=== PATIENT | male | born 1960 | race Caucasian/White ===

== ENCOUNTER 2017-09-19 10:24 | Emergency (ER) | payer SELFPAY | END 2017-09-19 13:02 | disposition left against medical advice (07) | LOC: NED 10:24 | DX: R06.02 Shortness of breath (principal); R42 Dizziness and giddiness; Z53.21 Procedure and treatment not carried out due to patient leaving prior to being seen by health care provider | CPT/HCPCS: 99281 ==

== ENCOUNTER 2017-09-27 12:41 | Inpatient (IN) | payer OTHER ==
[~2017-09-27] VITALS: Ht 180.3 cm; Wt 86.9 kg
[2017-09-27] MEDS ORDERED: LORazepam 2 MG/ML VIAL ONE (13:08)
[2017-09-27] MEDS ORDERED: HALOPERIDOL LACTATE 5 MG/ML AMP ONE (13:08)
[2017-09-27] MEDS ORDERED: SODIUM CHLOR 0.9% 1000 ML INJ 1,000 ML IV ONE ×3 (13:15→15:42)
[2017-09-27] MEDS ORDERED: LORazepam 2 MG/ML VIAL IV PUSH ONE (13:15)
--- NOTE | 2017-09-27 13:25 | PD ---
HPI Chief Complaint: Altered Mental Status Time Seen by Provider: 13:09 Travel History International Travel<30 days: No Contact w/Intl Traveler<30days: No Traveled to known affect area: No History of Present Illness HPI Patient is a 57-year-old male presenting from the retirement for evaluation of altered mental status and cellulitis. H&P is limited, patient is not cooperative, he is flailing and jerking in the bed, yelling racist remarks. Paperwork from the retirement stated that patient received antibiotics and he has no known drug allergies. Per report patient has a history of drug abuse, heroin. Cellulitic area to right arm is marked. [facility] Past Medical History Medical History: Unable to Obtain Social History Alcohol Use: Yes Tobacco Use: Yes Substance Use: Yes Allergies-Medications (Allergen,Severity, Reaction): Coded Allergies: No Known Allergies (Unverified , 09/27/17) Review of Systems ROS Limitations: Uncooperative, Combative Except as stated in HPI: all other systems reviewed are Neg Skin: Positive Lumps, Positive Change in Pigmentation, Positive Lesions Psychiatric: Positive: Mood Disorder, Substance Abuse Physical Exam Narrative GENERAL: Well-developed, well-nourished, alert combative male. SKIN: 3 cm fluctuant mass to mid thoracic back on the right side. Multiple abrasions on wrists, legs, feet. Rash to abdomen. Discoloration to bilateral upper extremities. HEAD: Atraumatic. Normocephalic. EYES: Pupils equal and round. No scleral icterus. No injection or drainage. ENT: No nasal bleeding or discharge. Mucous membranes pink and moist. NECK: Trachea midline. No JVD. CARDIOVASCULAR: Regular rate and rhythm. RESPIRATORY: No accessory muscle use. Clear to auscultation. Breath sounds equal bilaterally. GASTROINTESTINAL: Abdomen soft, non-tender, nondistended. Hepatic and splenic margins not palpable. MUSCULOSKELETAL: Bilateral upper extremities have a purple appearance to just past the elbows bilaterally, bilateral hands are edematous. 2+ radial pulses bilaterally NEUROLOGICAL: Awake and alert. No obvious cranial nerve deficits. Motor grossly within normal limits. Five out of 5 muscle strength in the arms and legs. Normal speech. PSYCHIATRIC: Aggressive and combative mood and affect Data Data Last Documented VS Vital Signs Date Time Temp Pulse Resp B/P (MAP) Pulse Ox O2 Delivery O2 Flow Rate FiO2 09/27/17 16:24 100.3 112 18 134/80 (98) 100 Nasal Cannula 2.00 Orders Orders Sepsis Workup Initiated (09/27/17 ) Complete Blood Count With Diff (09/27/17 12:49) Comprehensive Metabolic Panel (09/27/17 12:49) Lactic Acid Sepsis Protocol (09/27/17 12:49) Blood Culture (09/27/17 12:49) Iv Access Insert/Monitor (09/27/17 12:49) Lorazepam Inj (Ativan Inj) (09/27/17 13:08) Haloperidol Inj (Haldol Inj) (09/27/17 13:08) Sodium Chlor 0.9% 1000 Ml Inj (Ns 1000 M (09/27/17 13:15) Lorazepam Inj (Ativan Inj) (09/27/17 13:15) Creatine Kinase (Cpk) (09/27/17 13:25) Drug Screen, Random Urine (09/27/17 13:25) Cath For Specimen (09/27/17 13:25) Urinalysis - C+S If Indicated (09/27/17 13:50) Sepsis Workup Initiated (09/27/17 ) Blood Culture (09/27/17 15:42) Chest, Single Ap (09/27/17 15:42) Piperacil-Tazo 4.5 Gm Premix (Zosyn 4.5 (09/27/17 15:42) Vancomycin Inj (Vancomycin Inj) (09/27/17 15:42) Sodium Chlor 0.9% 1000 Ml Inj (Ns 1000 M (09/27/17 15:42) Sodium Chlor 0.9% 1000 Ml Inj (Ns 1000 M (09/27/17 15:42) Acetaminophen 1000 Mg/100 Ml (Ofirmev 10 (09/27/17 15:45) Us Arm Venous Doppler Bilat (09/27/17 ) Lactic Acid (09/27/17 16:42) CKMB (09/27/17 14:19) CKMB% (09/27/17 14:19) Restraints Violent (09/27/17 16:59) Electrocardiogram (09/27/17 ) Sodium Chlor 0.9% 1000 Ml Inj (Ns 1000 M (09/27/17 18:45) Admit Order (Ed Use Only) (09/27/17 18:38) Labs Laboratory Tests Test 09/27/17 14:19 09/27/17 17:41 White Blood Count 19.8 TH/MM3 Red Blood Count 4.31 MIL/MM3 Hemoglobin 12.2 GM/DL Hematocrit 35.4 % Mean Corpuscular Volume 82.2 FL Mean Corpuscular Hemoglobin 28.2 PG Mean Corpuscular Hemoglobin Concent 34.4 % Red Cell Distribution Width 14.0 % Platelet Count 330 TH/MM3 Mean Platelet Volume 8.5 FL Neutrophils (%) (Auto) 92.8 % Lymphocytes (%) (Auto) 2.2 % Monocytes (%) (Auto) 4.9 % Eosinophils (%) (Auto) 0.0 % Basophils (%) (Auto) 0.1 % Neutrophils # (Auto) 18.4 TH/MM3 Lymphocytes # (Auto) 0.4 TH/MM3 Monocytes # (Auto) 1.0 TH/MM3 Eosinophils # (Auto) 0.0 TH/MM3 Basophils # (Auto) 0.0 TH/MM3 CBC Comment DIFF FINAL Differential Comment Urine Color YELLOW Urine Turbidity HAZY Urine pH 5.5 Urine Specific [place] 1.022 Urine Protein 100 mg/dL Urine Glucose (UA) NEG mg/dL Urine Ketones 10 mg/dL Urine Occult Blood LARGE Urine Nitrite NEG Urine Bilirubin NEG Urine Urobilinogen LESS THAN 2.0 MG/DL Urine Leukocyte Esterase NEG Urine RBC 1 /hpf Urine WBC 4 /hpf Urine Squamous Epithelial Cells <1 /hpf Urine Amorphous Sediment RARE Urine Mucus FEW /lpf Microscopic Urinalysis Comment CULT NOT INDICATED Blood Urea Nitrogen 56 MG/DL Creatinine 3.02 MG/DL Random Glucose 89 MG/DL Total Protein 7.9 GM/DL Albumin 3.6 GM/DL Calcium Level 8.6 MG/DL Alkaline Phosphatase 43 U/L Aspartate Amino Transf (AST/SGOT) 420 U/L Alanine Aminotransferase (ALT/SGPT) 124 U/L Total Bilirubin 0.9 MG/DL Sodium Level 140 MEQ/L Potassium Level 3.9 MEQ/L Chloride Level 105 MEQ/L Carbon Dioxide Level 20.0 MEQ/L Anion Gap 15 MEQ/L Estimat Glomerular Filtration Rate 21 ML/MIN Lactic Acid Level 3.0 mmol/L 1.2 mmol/L Total Creatine Kinase 85916 U/L Creatine Kinase MB 92.0 NG/ML Creatine Kinase MB % 0.2 % Urine Opiates Screen NEG Urine Barbiturates Screen NEG Urine Amphetamines Screen NEG Urine Benzodiazepines Screen NEG Urine Cocaine Screen NEG Urine Cannabinoids Screen POS MDM Medical Decision Making Medical Screen Exam Complete: Yes Emergency Medical Condition: Yes Interpretation(s) Vital Signs Date Time Temp Pulse Resp B/P (MAP) Pulse Ox O2 Delivery O2 Flow Rate FiO2 09/27/17 16:24 100.3 112 18 134/80 (98) 100 Nasal Cannula 2.00 09/27/17 15:21 100.3 108 18 143/88 (106) 100 Nasal Cannula 2.00 09/27/17 13:54 100.5 107 18 132/71 (91) 99 Room Air Laboratory Tests Test 09/27/17 14:19 White Blood Count 19.8 TH/MM3 Red Blood Count 4.31 MIL/MM3 Hemoglobin 12.2 GM/DL Hematocrit 35.4 % Mean Corpuscular Volume 82.2 FL Mean Corpuscular Hemoglobin 28.2 PG Mean Corpuscular Hemoglobin Concent 34.4 % Red Cell Distribution Width 14.0 % Platelet Count 330 TH/MM3 Mean Platelet Volume 8.5 FL Neutrophils (%) (Auto) 92.8 % Lymphocytes (%) (Auto) 2.2 % Monocytes (%) (Auto) 4.9 % Eosinophils (%) (Auto) 0.0 % Basophils (%) (Auto) 0.1 % Neutrophils # (Auto) 18.4 TH/MM3 Lymphocytes # (Auto) 0.4 TH/MM3 Monocytes # (Auto) 1.0 TH/MM3 Eosinophils # (Auto) 0.0 TH/MM3 Basophils # (Auto) 0.0 TH/MM3 CBC Comment DIFF FINAL Differential Comment Urine Color YELLOW Urine Turbidity HAZY Urine pH 5.5 Urine Specific [place] 1.022 Urine Protein 100 mg/dL Urine Glucose (UA) NEG mg/dL Urine Ketones 10 mg/dL Urine Occult Blood LARGE Urine Nitrite NEG Urine Bilirubin NEG Urine Urobilinogen LESS THAN 2.0 MG/DL Urine Leukocyte Esterase NEG Urine RBC 1 /hpf Urine WBC 4 /hpf Urine Squamous Epithelial Cells <1 /hpf Urine Amorphous Sediment RARE Urine Mucus FEW /lpf Microscopic Urinalysis Comment CULT NOT INDICATED Blood Urea Nitrogen 56 MG/DL Creatinine 3.02 MG/DL Random Glucose 89 MG/DL Total Protein 7.9 GM/DL Albumin 3.6 GM/DL Calcium Level 8.6 MG/DL Alkaline Phosphatase 43 U/L Aspartate Amino Transf (AST/SGOT) 420 U/L Alanine Aminotransferase (ALT/SGPT) 124 U/L Total Bilirubin 0.9 MG/DL Sodium Level 140 MEQ/L Potassium Level 3.9 MEQ/L Chloride Level 105 MEQ/L Carbon Dioxide Level 20.0 MEQ/L Anion Gap 15 MEQ/L Estimat Glomerular Filtration Rate 21 ML/MIN Lactic Acid Level 3.0 mmol/L Urine Opiates Screen NEG Urine Barbiturates Screen NEG Urine Amphetamines Screen NEG Urine Benzodiazepines Screen NEG Urine Cocaine Screen NEG Urine Cannabinoids Screen POS Last Impressions Chest X-Ray 09/27/17 1542 Signed Impressions: Service Date/Time: Wednesday, September 27, 2017 15:52 - CONCLUSION: No acute disease. Justo Kelly MD Upper Extremity Ultrasound 09/27/17 0000 Signed Impressions: Service Date/Time: Wednesday, September 27, 2017 17:08 - CONCLUSION: Normal examination. Justo Kelly MD Differential Diagnosis Cellulitis versus abscess versus metabolic abnormality versus sepsis versus substance abuse versus other Narrative Course Patient was brought from the retirement for evaluation of altered mental status and cellulitis. Patient was combative and aggressive on arrival, spitting and yelling racial slurs. He was jerking in the bed causing potential injury to himself and staff. Patient was placed in four-point restraints, he continued the aggressive behavior. He was given Ativan and Haldol. Labs ordered and pending. When patient finally calm down, labs were obtained. CBC with a white count of 19.8 with left shift Chemistry with a BUN and creatinine of 56/3.02, AST and ALT 420 and 124. Lactic acid 3.0 Urine drug screen is positive for marijuana Urinalysis is not consistent with a urinary tract infection. IV acetaminophen was given for fever of 100.3 Patient has received a total of 3 L of IV fluids. Ultrasound of bilateral upper extremities ordered to rule out DVT, per technician helper instrument bilateral upper extremities are negative for blood clot. CPK [id number] Patient has been resting comfortably, he has been taken out of the restraints. Law enforcement is at bedside. Discussed with Dr. Viveros who accepted admission. IV fluids ordered per his request, normal saline at 150 an hour. Admit orders placed. Procedures Procedure Narrative After the risks and benefits were discussed the following procedure was performed: INCISION AND DRAINAGE OF ABSCESS: The area was prepped and was sterilely draped. A subcutaneous wheal of 1 % Xylocaine with a total number 2 mL was used to anesthetize the area. The area was properly anesthetized. A number 11 scalpel was used to make a 2 -cm incision across the area of the abscess. The abscess was drained an irrigated with normal saline. Quarter inch iodoform packing was placed in the wound. Sterile dressing applied. Patient advised to have packing removed in two days. Sepsis Criteria SIRS Criteria (2 or more): Heart rate over 90, RR > 20 or PaCO2 < 32, WBC > 12205, < 4000 or > 10% bands Sepsis Criteria (SIRS+source): Infect source susp/known (cellulitis/IVDU) Severe Sepsis (+one): Organ Dysfunction (transaminitis), Lactate >2, Acute Oliguria/Renal Failure Diagnosis Primary Impression: Severe sepsis Additional Impressions: Cellulitis Qualified Codes: L03.119 - Cellulitis of unspecified part of limb IV drug abuse Rhabdomyolysis Qualified Codes: M62.82 - Rhabdomyolysis Admitting Information Admitting Physician Requests: Admit Condition: Stable Amarilys Talbert Sep 27, 2017 13:25
[2017-09-27 13:54] VITALS: BP 132/71; PULSE 107; RESP 18; TEMP 100.5; O2SAT 99
[2017-09-27 14:39] LABS: AUTOMATED NEUTROPHIL # 18.4 TH/MM3 (1.8-7.7); BASOPHIL % 0.1 % (0.0-2.0); HEMATOCRIT 35.4 % (39.0-51.0); HEMOGLOBIN 12.2 GM/DL (13.0-17.0); LYMPH % 2.2 % (9.0-44.0); LYMPHOCYTE # 0.4 TH/MM3 (1.0-4.8); MEAN CELL VOLUME 82.2 FL (80.0-100.0); MEAN CORPUSCULAR HEMOGLOBIN 28.2 PG (27.0-34.0); MEAN CORPUSCULAR HGB CONC 34.4 % (32.0-36.0); MEAN PLATELET VOLUME 8.5 FL (7.0-11.0); MONO % 4.9 % (0.0-8.0); NEUT % 92.8 % (16.0-70.0); PLATELET COUNT 330 TH/MM3 (150-450); RED BLOOD COUNT 4.31 MIL/MM3 (4.50-5.90); WHITE BLOOD COUNT 19.8 TH/MM3 (4.0-11.0)
[2017-09-27 14:45] LABS: AMORPHOUS SEDIMENT, URINE RARE; BILIRUBIN, URINE NEG (NEG); BLOOD, URINE LARGE (NEG); GLUCOSE,URINE NEG (NEG); KETONE, URINE 10 mg/dL (NEG); MUCUS URINE FEW /lpf (OCC); NITRITE,URINE NEG (NEG); PH, URINE 5.5 (5.0-8.5); SQUAMOUS EPITHELIAL CELL URINE <1 /hpf (0-5); URINE COLOR YELLOW (YELLW/STRAW); URINE LEUKOCYTE ESTERASE NEG (NEG)
[2017-09-27 15:10] LABS: ALKALINE PHOSPHATASE 43 U/L (45-117); TOTAL BILIRUBIN ADULT 0.9 MG/DL (0.2-1.0); TOTAL PROTEIN 7.9 GM/DL (6.4-8.2)
[2017-09-27 15:15] LABS: ALBUMIN 3.6 GM/DL (3.4-5.0); ALT (GPT) 124 U/L (12-78); AST (GOT) 420 U/L (15-37); BLOOD UREA NITROGEN 56 MG/DL (7-18); CALCIUM 8.6 MG/DL (8.5-10.1); CHLORIDE 105 MEQ/L (98-107); CREATININE 3.02 MG/DL (0.60-1.30); GLOMERULAR FILTRATION RATE 21 ML/MIN (>89); GLUCOSE,RANDOM 89 MG/DL (74-106); SODIUM (NA) 140 MEQ/L (136-145)
[2017-09-27 15:21] VITALS: BP 143/88; PULSE 108; RESP 18; TEMP 100.3; O2SAT 100
[2017-09-27] MEDS ORDERED: VANCOMYCIN INJ 1,000 MG in SODIUM CHLOR 0.9% 250 ML INJ 250 ML IV STA (15:42)
[2017-09-27] MEDS ORDERED: PIPERACIL-TAZO 4.5 GM PREMIX 100 ML IV STA (15:42)
[2017-09-27] MEDS ORDERED: ACETAMINOPHEN 1000 MG/100 ML 65 ML IV ONE (15:45)
--- NOTE | 2017-09-27 15:56 | PD ---
Physical Exam Date Seen by Provider: Sep 27, 2017 Narrative This patient was sent to us from the custodial for evaluation of upper extremity cellulitis. He has been incarcerated there for a couple of days. He admits to heroin abuse. He is being extremely uncooperative. Data Data Last Documented VS Vital Signs Date Time Temp Pulse Resp B/P (MAP) Pulse Ox O2 Delivery O2 Flow Rate FiO2 09/27/17 15:21 100.3 108 18 143/88 (106) 100 Nasal Cannula 2.00 Orders Orders Sepsis Workup Initiated (09/27/17 ) Complete Blood Count With Diff (09/27/17 12:49) Comprehensive Metabolic Panel (09/27/17 12:49) Lactic Acid Sepsis Protocol (09/27/17 12:49) Blood Culture (09/27/17 12:49) Iv Access Insert/Monitor (09/27/17 12:49) Lorazepam Inj (Ativan Inj) (09/27/17 13:08) Haloperidol Inj (Haldol Inj) (09/27/17 13:08) Sodium Chlor 0.9% 1000 Ml Inj (Ns 1000 M (09/27/17 13:15) Lorazepam Inj (Ativan Inj) (09/27/17 13:15) Creatine Kinase (Cpk) (09/27/17 13:25) Drug Screen, Random Urine (09/27/17 13:25) Cath For Specimen (09/27/17 13:25) Urinalysis - C+S If Indicated (09/27/17 13:50) Wound Culture And Gram Stain (09/27/17 14:20) Sepsis Workup Initiated (09/27/17 ) Blood Culture (09/27/17 15:42) Chest, Single Ap (09/27/17 15:42) Piperacil-Tazo 4.5 Gm Premix (Zosyn 4.5 (09/27/17 15:42) Vancomycin Inj (Vancomycin Inj) (09/27/17 15:42) Sodium Chlor 0.9% 1000 Ml Inj (Ns 1000 M (09/27/17 15:42) Sodium Chlor 0.9% 1000 Ml Inj (Ns 1000 M (09/27/17 15:42) Acetaminophen 1000 Mg/100 Ml (Ofirmev 10 (09/27/17 15:45) Us Arm Venous Doppler Bilat (09/27/17 ) Labs Laboratory Tests Test 09/27/17 14:19 White Blood Count 19.8 TH/MM3 Red Blood Count 4.31 MIL/MM3 Hemoglobin 12.2 GM/DL Hematocrit 35.4 % Mean Corpuscular Volume 82.2 FL Mean Corpuscular Hemoglobin 28.2 PG Mean Corpuscular Hemoglobin Concent 34.4 % Red Cell Distribution Width 14.0 % Platelet Count 330 TH/MM3 Mean Platelet Volume 8.5 FL Neutrophils (%) (Auto) 92.8 % Lymphocytes (%) (Auto) 2.2 % Monocytes (%) (Auto) 4.9 % Eosinophils (%) (Auto) 0.0 % Basophils (%) (Auto) 0.1 % Neutrophils # (Auto) 18.4 TH/MM3 Lymphocytes # (Auto) 0.4 TH/MM3 Monocytes # (Auto) 1.0 TH/MM3 Eosinophils # (Auto) 0.0 TH/MM3 Basophils # (Auto) 0.0 TH/MM3 CBC Comment DIFF FINAL Differential Comment Urine Color YELLOW Urine Turbidity HAZY Urine pH 5.5 Urine Specific [place] 1.022 Urine Protein 100 mg/dL Urine Glucose (UA) NEG mg/dL Urine Ketones 10 mg/dL Urine Occult Blood LARGE Urine Nitrite NEG Urine Bilirubin NEG Urine Urobilinogen LESS THAN 2.0 MG/DL Urine Leukocyte Esterase NEG Urine RBC 1 /hpf Urine WBC 4 /hpf Urine Squamous Epithelial Cells <1 /hpf Urine Amorphous Sediment RARE Urine Mucus FEW /lpf Microscopic Urinalysis Comment CULT NOT INDICATED Blood Urea Nitrogen 56 MG/DL Creatinine 3.02 MG/DL Random Glucose 89 MG/DL Total Protein 7.9 GM/DL Albumin 3.6 GM/DL Calcium Level 8.6 MG/DL Alkaline Phosphatase 43 U/L Aspartate Amino Transf (AST/SGOT) 420 U/L Alanine Aminotransferase (ALT/SGPT) 124 U/L Total Bilirubin 0.9 MG/DL Sodium Level 140 MEQ/L Potassium Level 3.9 MEQ/L Chloride Level 105 MEQ/L Carbon Dioxide Level 20.0 MEQ/L Anion Gap 15 MEQ/L Estimat Glomerular Filtration Rate 21 ML/MIN Lactic Acid Level 3.0 mmol/L MDM Supervised Visit with [facility]: Yes Narrative Course I, Dr. Valdivia, have reviewed the advance practice practitioner's documentation and am in agreement, met with the patient face to face, made the diagnosis, and the medical decision making was done by me. *My assessment and Findings: Vital Signs Date Time Temp Pulse Resp B/P (MAP) Pulse Ox O2 Delivery O2 Flow Rate FiO2 09/27/17 15:21 100.3 108 18 143/88 (106) 100 Nasal Cannula 2.00 09/27/17 13:54 100.5 107 18 132/71 (91) 99 Room Air CBC & BMP Diagram 09/27/17 14:19 Total Protein 7.9, Albumin 3.6, Calcium Level 8.6, Alkaline Phosphatase 43 L, Aspartate Amino Transf (AST/SGOT) 420 H, Alanine Aminotransferase (ALT/SGPT) 124 H, Total Bilirubin 0.9 Lactic acid level is 3.0. The patient is being treated empirically with Zosyn and vancomycin. He will be admitted to the hospital for severe sepsis, cellulitis, IV drug abuse Please see Amarilys Cleary NP's note for results of laboratory and radiographic evaluation, ED course, final diagnosis and disposition Sepsis Criteria SIRS Criteria (2 or more): Heart rate over 90, WBC > 13896, < 4000 or > 10% bands Sepsis Criteria (SIRS+source): Infect source susp/known Severe Sepsis (+one): Lactate >2 Criteria Outcome: Meets SIRS criteria, Meets sepsis criteria, Meets severe sepsis criteria Diagnosis Primary Impression: Severe sepsis Additional Impressions: Cellulitis Qualified Codes: L03.119 - Cellulitis of unspecified part of limb IV drug abuse Dariana Valdivia MD Sep 27, 2017 15:56
[2017-09-27 16:24] VITALS: BP 134/80; PULSE 112; RESP 18; TEMP 100.3; O2SAT 100
--- NOTE | 2017-09-27 16:38 | RADRPT ---
EXAM DATE/TIME: 09/27/2017 15:52 [facility] COMPARISON: No previous studies available for comparison. INDICATIONS : Fever. MEDICAL HISTORY : Unobtainable. SURGICAL HISTORY : Unobtainable. ENCOUNTER: Initial ACUITY: 1 day PAIN SCORE: Non-responsive. LOCATION: Bilateral chest FINDINGS: A single view of the chest demonstrates the lungs to be symmetrically aerated without evidence of mas s, infiltrate or effusion. The cardiomediastinal contours are unremarkable. Osseous structures are intact. CONCLUSION: No acute disease. Justo Kelly MD on September 27, 2017 at 16:35 Board Certified Radiologist. This report was verified electronically.
--- NOTE | 2017-09-27 17:53 | RADRPT ---
EXAM DATE/TIME: 09/27/2017 17:08 [facility] COMPARISON: No previous studies available for comparison. INDICATIONS : Bilateral arm swelling. MEDICAL HISTORY : Unable to obtain. SURGICAL HISTORY : Unable to obtain. ENCOUNTER: Initial ACUITY: 1 day PAIN SCORE: Non-responsive LOCATION: Bilateral arms. FINDINGS: RIGHT UPPER EXTREMITY: There is spontaneous flow documented in the brachial, basilic, cephalic, axillary, and subclavian vei ns. The vessels are compressible and augmentation response is documented. No filling defects are se en. The flow is phasic with respiration. Direction of flow in the jugular vein is caudal. LEFT UPPER EXTREMITY: There is spontaneous flow documented in the brachial, basilic, cephalic, axillary, and subclavian vei ns. The vessels are compressible and augmentation response is documented. No filling defects are se en. The flow is phasic with respiration. Direction of flow in the jugular vein is caudal. CONCLUSION: Normal examination. Justo Kelly MD on September 27, 2017 at 17:51 Board Certified Radiologist. This report was verified electronically.
[2017-09-27] MEDS ORDERED: SODIUM CHLOR 0.9% 1000 ML INJ 1,000 ML IV SCH (18:45)
[2017-09-27] MEDS ORDERED: SENNOSIDES 8.6 MG TAB PO PRN (18:45)
[2017-09-27] MEDS ORDERED: MAGNESIUM HYDROXIDE SUSP 30 ML CUP PO PRN (18:45)
[2017-09-27] MEDS ORDERED: SODIUM CHLORIDE 0.9% FLUSH 10 ML FLUSH IV FLUSH PRN (18:45)
[2017-09-27] MEDS ORDERED: Vancomycin Consult Pharmacy 1 EA OTHER SCH (18:45)
[2017-09-27] MEDS ORDERED: BISACODYL 10 MG SUPP RECTAL PRN (18:45)
[2017-09-27] MEDS ORDERED: ONDANSETRON HCL 4 MG/2 ML VIAL IVP PRN (18:45)
[2017-09-27] MEDS ORDERED: LACTULOSE SYRUP 20 GM/30 ML CUP PO PRN (18:45)
[2017-09-27 19:00] VITALS: BP 149/91; PULSE 102; RESP 19; O2SAT 100
--- NOTE | 2017-09-27 19:03 | HHI.HP ---
[facility] Service [facility] Primary Care Physician No Primary Care Physician Admission Diagnosis Rhabdomyolysis, sepsis, acute renal failure, cellulitis Diagnoses: (1) Sepsis Diagnosis: Principal (2) OLGA (acute kidney injury) Diagnosis: Principal (3) Rhabdomyolysis Diagnosis: Principal (4) Cellulitis Diagnosis: Principal (5) Encephalopathy Diagnosis: Principal Travel History International Travel<30 Days: No Contact w/Intl Traveler <30 Da: No Traveled to Known Affected Are: No History of Present Illness This is a 57-year-old male with unknown PMH who was brought to the ER from Detention secondary to AMS and bilateral upper extremity cellulitis. On arrival, patient found to be significantly combative, uncooperative with exam, requiring sedation. Currently calm, but remains uncooperative w/ questions/exam. Officers at bedside providing some history, pt was apparently in Mental Health Unit, held in solitary, noted to have bilateral upper extremity cellulitis and AMS. Per report, given Rocephin IV prior to transport to ER. On arrival, BP 132/71, HR 107, O2 sat 100% on RA, Temp 100.5. WBC 19.8. Creatinine 3.02, no previous labs for comparison. Lactic Acid 3.0. AST 420, ALT 124, ALP 43. CPK 58,778. UA negative for UTI. Urine Drug Screen positive for Marijuana. CXR no acute findings. Doppler UE normal. +bilateral upper extremity cellulitis w / swelling on exam, S/p Vanc/Zosyn in ER. Review of Systems Except as stated in HPI: all other systems reviewed are Neg ROS: Unable to obtain as patient uncooperative with exam. Past Family Social History Past Medical History PMH: Unknown Past Surgical History PAST SURGICAL HISTORY: Unknown Allergies: Coded Allergies: No Known Allergies (Unverified , 09/27/17) Family History PAST FAMILY HISTORY: Reviewed. No h/o DM or CAD Social History PAST SOCIAL HISTORY: Reportedly positive for alcohol, tobacco and drugs, however unable to verify Physical Exam Vital Signs Vital Signs Date Time Temp Pulse Resp B/P (MAP) Pulse Ox O2 Delivery O2 Flow Rate FiO2 3/31/18 16:24 100.3 112 18 134/80 (98) 100 Nasal Cannula 2.00 09/27/17 15:21 100.3 108 18 143/88 (106) 100 Nasal Cannula 2.00 09/27/17 13:54 100.5 107 18 132/71 (91) 99 Room Air Physical Exam PE: GENERAL: Middle-aged white male in no acute distress, sleeping, uncooperative w / questions/exam. Officers at bedside HEENT: PERRLA, EOMI. No scleral icterus or conjunctival pallor. No lid lag or facial droop. CARDIOVASCULAR: Regular rate and rhythm. No obvious murmurs to auscultation. No chest tenderness to palpation. RESPIRATORY: No obvious rhonchi or wheezing. Clear to auscultation. Breath sounds equal bilaterally. GASTROINTESTINAL: Abdomen soft, non-tender, nondistended. BS normal. MUSCULOSKELETAL: Extremities without clubbing, cyanosis, or edema. Bilateral upper extremity erythema/edema, few healing lacerations, no open wound noted. NEUROLOGICAL: Asleep, not cooperative w/ exam. No focal neurologic deficits. Moving both upper and lower extremities spontaneously. Laboratory Laboratory Tests Test 09/27/17 14:19 09/27/17 17:41 White Blood Count 19.8 Red Blood Count 4.31 Hemoglobin 12.2 Hematocrit 35.4 Mean Corpuscular Volume 82.2 Mean Corpuscular Hemoglobin 28.2 Mean Corpuscular Hemoglobin Concent 34.4 Red Cell Distribution Width 14.0 Platelet Count 330 Mean Platelet Volume 8.5 Neutrophils (%) (Auto) 92.8 Lymphocytes (%) (Auto) 2.2 Monocytes (%) (Auto) 4.9 Eosinophils (%) (Auto) 0.0 Basophils (%) (Auto) 0.1 Neutrophils # (Auto) 18.4 Lymphocytes # (Auto) 0.4 Monocytes # (Auto) 1.0 Eosinophils # (Auto) 0.0 Basophils # (Auto) 0.0 CBC Comment DIFF FINAL Differential Comment Urine Color YELLOW Urine Turbidity HAZY Urine pH 5.5 Urine Specific [place] 1.022 Urine Protein 100 Urine Glucose (UA) NEG Urine Ketones 10 Urine Occult Blood LARGE Urine Nitrite NEG Urine Bilirubin NEG Urine Urobilinogen LESS THAN 2.0 Urine Leukocyte Esterase NEG Urine RBC 1 Urine WBC 4 Urine Squamous Epithelial Cells <1 Urine Amorphous Sediment RARE Urine Mucus FEW Microscopic Urinalysis Comment CULT NOT INDICATED Blood Urea Nitrogen 56 Creatinine 3.02 Random Glucose 89 Total Protein 7.9 Albumin 3.6 Calcium Level 8.6 Alkaline Phosphatase 43 Aspartate Amino Transf (AST/SGOT) 420 Alanine Aminotransferase (ALT/SGPT) 124 Total Bilirubin 0.9 Sodium Level 140 Potassium Level 3.9 Chloride Level 105 Carbon Dioxide Level 20.0 Anion Gap 15 Estimat Glomerular Filtration Rate 21 Lactic Acid Level 3.0 1.2 Total Creatine Kinase 07031 Creatine Kinase MB 92.0 Creatine Kinase MB % 0.2 Urine Opiates Screen NEG Urine Barbiturates Screen NEG Urine Amphetamines Screen NEG Urine Benzodiazepines Screen NEG Urine Cocaine Screen NEG Urine Cannabinoids Screen POS Date/Time Source Procedure Growth Status 09/27/17 14:19 Blood Peripheral Aerobic Blood Culture Pending Received 09/27/17 14:19 Blood Peripheral Anaerobic Blood Culture Pending Received Result Diagram: 09/27/17 1419 09/27/17 1419 Pollo VTE Risk Assessment Caprini VTE Risk Assessment: No/Low Risk (score <= 1) Caprini Risk Assessment Model Point Value = 1 Point Value = 2 Point Value = 3 Point Value = 5 Age 41-60 Minor surgery BMI > 25 kg/m2 Swollen legs Varicose veins or History of unexplained or recurrent spontaneous Oral contraceptives or hormone replacement Sepsis (< 1 month) Serious lung disease, including pneumonia (< 1 month) Abnormal pulmonary function Acute myocardial infarction Congestive heart failure (< 1 month) History of inflammatory bowel disease Medical patient at bed rest Age 61-74 Arthroscopic surgery Major open surgery (> 45 min) Laparoscopic surgery (> 45 min) Malignancy Confined to bed (> 72 hours) Immobilizing plaster cast Central venous access Age >= 75 History of VTE Family history of VTE Factor V Leiden Prothrombin [id number] Lupus anticoagulant Anticardiolipin antibodies Elevated serum homocysteine Heparin-induced thrombocytopenia Other congenital or acquired thrombophilia Stroke (< 1 month) Elective arthroplasty Hip, pelvis, or leg fracture Acute spinal cord injury (< 1 month) Prophylaxis Regimen Total Risk Factor Score Risk Level Prophylaxis Regimen 0-1 Low Early ambulation 2 Moderate Order ONE of the following: *Sequential Compression Device (SCD) *Heparin 5000 units SQ BID 3-4 Higher Order ONE of the following medications: *Heparin 5000 units SQ TID *Enoxaparin/Lovenox 40 mg SQ daily (WT < 150 kg, CrCl > 30 mL/min) *Enoxaparin/Lovenox 30 mg SQ daily (WT < 150 kg, CrCl > 10-29 mL/min) *Enoxaparin/Lovenox 30 mg SQ BID (WT < 150 kg, CrCl > 30 mL/min) AND/OR *Sequential Compression Device (SCD) 5 or more Highest Order ONE of the following medications: *Heparin 5000 units SQ TID (Preferred with Epidurals) *Enoxaparin/Lovenox 40 mg SQ daily (WT < 150 kg, CrCl > 30 mL/min) *Enoxaparin/Lovenox 30 mg SQ daily (WT < 150 kg, CrCl > 10-29 mL/min) *Enoxaparin/Lovenox 30 mg SQ BID (WT < 150 kg, CrCl > 30 mL/min) AND *Sequential Compression Device (SCD) Assessment and Plan Problem List: (1) Sepsis ICD Code: A41.9 - Sepsis, unspecified organism (2) Encephalopathy ICD Code: G93.40 - Encephalopathy, unspecified (3) Rhabdomyolysis ICD Code: M62.82 - Rhabdomyolysis Status: Acute (4) Cellulitis ICD Code: L03.90 - Cellulitis, unspecified Status: Acute (5) OLGA (acute kidney injury) ICD Code: N17.9 - Acute kidney failure, unspecified Assessment and Plan A/P: 1. Sepsis: Temp 100.5, HR 107, WBC 19, Lactic Acid 3.0, Source-Cellulitis. S/ p Blood Cultures, Vanc/Zosyn in ER. U/a negative for UTI. Follow up cultures, continue IV Abx, IVF for hydration, repeat Lactic Acid. 2. Cellulitis: Bilateral upper extremity cellulitis, erythema/edema on exam. Continue w/ Vanc/Cefepime. Repeat labs in am, follow up cultures. 3. Rhabdomyolysis: Severe. CPK 58,778. U/a w/ occult blood, Creatinine 3.02. Aggressive IVF for hydration, will start Sodium Bicarb, check Urine pH 4. OLGA: Creatinine 3.02, no previous labs for comparison, presumably new and secondary to Rhabdo. Aggressive IVF as above, Consult Nephrology for further recommendations, repeat labs in am. 5. Encephalopathy: Baseline unknown, currently being held in [facility] per Officers, likely underlying psych component. +agitated/ combative on arrival requiring sedation, now calm. Ativan prn. Urine Drug Screen +Marijuana. Consult Psych as needed for further eval. 6. DVT Prophylaxis: SCD/Teds. 7. Social work for d/c planning as needed. 8. Case discussed w/ ER physician at length, labs/records/imaging reviewed by me. Physician Certification 2 Midnight Certification Type: Admission for Inpatient Services Order for Inpatient Services The services are ordered in accordance with Medicare regulations or non- Medicare payer requirements, as applicable. In the case of services not specified as inpatient-only, they are appropriately provided as inpatient services in accordance with the 2-midnight benchmark. Estimated LOS (days): 2 days is the estimated time the patient will need to remain in the hospital, assuming treatment plan goals are met and no additional complications. Post-Hospital Plan: Not yet determined Problem Qualifiers (1) Rhabdomyolysis: Qualified Codes: M62.82 - Rhabdomyolysis (2) Cellulitis: Qualified Codes: L03.119 - Cellulitis of unspecified part of limb [place] Soriano MD Sep 27, 2017 19:03
[2017-09-27] MEDS ORDERED: VANCOMYCIN 1,000 MG/NS 250 ML IV ONE ×2 (19:15)
[2017-09-27 19:30] VITALS: BP 147/82; PULSE 98; RESP 18; O2SAT 100
[2017-09-27] MEDS: DOCUSATE SODIUM 50 MG/SENNA 8.6 MG TAB PO SCH (21:00)
[2017-09-27] MEDS: SODIUM CHLOR 0.9% 1000 ML INJ 1,000 ML IV SCH (21:53)
[2017-09-27] MEDS: SODIUM CHLORIDE 0.9% FLUSH 10 ML FLUSH IV FLUSH SCH (21:54)
[2017-09-27 21:55] VITALS: BP 162/83; PULSE 97; RESP 13; TEMP 98.7; O2SAT 100
[2017-09-27] MEDS ORDERED: IBUP200T47 PO (22:12)
[2017-09-27] MEDS ORDERED: BACT800T5 PO (22:12)
[2017-09-27] MEDS ORDERED: CEFT1INJ IM (22:12)
[2017-09-27] MEDS ORDERED: MINO100 PO (22:12)
[2017-09-28] VITALS (8 sets, daily range): BP systolic 133–164; BP diastolic 65–87; PULSE 97–114; RESP 17–20; TEMP 95.4–98.8; O2SAT 93–99
[2017-09-28] MEDS: SODIUM CHLOR 0.9% 1000 ML INJ 1,000 ML IV SCH ×5 (03:48→21:08)
[2017-09-28 05:05] LABS: AUTOMATED NEUTROPHIL # 15.1 TH/MM3 (1.8-7.7); BASOPHIL % 0.1 % (0.0-2.0); HEMATOCRIT 30.1 % (39.0-51.0); HEMOGLOBIN 10.2 GM/DL (13.0-17.0); LYMPH % 4.7 % (9.0-44.0); LYMPHOCYTE # 0.8 TH/MM3 (1.0-4.8); MEAN CELL VOLUME 83.8 FL (80.0-100.0); MEAN CORPUSCULAR HEMOGLOBIN 28.3 PG (27.0-34.0); MEAN CORPUSCULAR HGB CONC 33.8 % (32.0-36.0); MEAN PLATELET VOLUME 8.1 FL (7.0-11.0); MONO % 4.3 % (0.0-8.0); MONOCYTE # 0.7 TH/MM3 (0-0.9); NEUT % 90.9 % (16.0-70.0); PLATELET COUNT 241 TH/MM3 (150-450); RED BLOOD COUNT 3.59 MIL/MM3 (4.50-5.90); RED CELL DISTRIBUTION WIDTH 13.8 % (11.6-17.2); WHITE BLOOD COUNT 16.6 TH/MM3 (4.0-11.0)
[2017-09-28] MEDS: ACETAMINOPHEN 325 MG TAB PO PRN (05:35)
[2017-09-28 06:05] LABS: ALBUMIN 2.8 GM/DL (3.4-5.0); ALKALINE PHOSPHATASE 37 U/L (45-117); ALT (GPT) 121 U/L (12-78); AST (GOT) 418 U/L (15-37); BICARBONATE 19.6 MEQ/L (21.0-32.0); BLOOD UREA NITROGEN 36 MG/DL (7-18); CALCIUM 7.6 MG/DL (8.5-10.1); CHLORIDE 112 MEQ/L (98-107); CREATININE 1.36 MG/DL (0.60-1.30); GLOMERULAR FILTRATION RATE 54 ML/MIN (>89); GLUCOSE,RANDOM 80 MG/DL (74-106); SODIUM (NA) 142 MEQ/L (136-145); TOTAL BILIRUBIN ADULT 0.7 MG/DL (0.2-1.0); TOTAL PROTEIN 6.3 GM/DL (6.4-8.2)
[2017-09-28] MEDS: SODIUM CHLORIDE 0.9% FLUSH 10 ML FLUSH IV FLUSH SCH ×2 (08:18→21:09)
[2017-09-28] MEDS: DOCUSATE SODIUM 50 MG/SENNA 8.6 MG TAB PO SCH ×2 (08:19→21:10)
[2017-09-28] MEDS ORDERED: CEFEPIME INJ 1,000 MG in SODIUM CHLORIDE 0.9% INJ 100 ML IV SCH (09:00)
--- NOTE | 2017-09-28 10:02 | HHI.PR ---
Subjective Remarks in no acute distress. confused. looks fairly comfortable. T max 100.3. Objective Vitals Vital Signs Date Time Temp Pulse Resp B/P (MAP) Pulse Ox O2 Delivery O2 Flow Rate FiO2 09/28/17 08:00 97.7 97 18 151/84 (106) 93 09/28/17 04:00 97.1 99 19 140/65 (90) 99 09/28/17 01:35 97.5 103 19 144/79 (100) 98 09/27/17 21:55 98.7 97 13 162/83 (109) 100 Nasal Cannula 2.00 09/27/17 19:30 98 18 147/82 (103) 100 Nasal Cannula 2.00 09/27/17 19:00 102 19 149/91 (110) 100 Nasal Cannula 2.00 09/27/17 16:24 100.3 112 18 134/80 (98) 100 Nasal Cannula 2.00 09/27/17 15:21 100.3 108 18 143/88 (106) 100 Nasal Cannula 2.00 09/27/17 13:54 100.5 107 18 132/71 (91) 99 Room Air I/O 09/27/17 09/27/17 09/27/17 09/28/17 09/28/17 09/28/17 07:00 15:00 23:00 07:00 15:00 23:00 Intake Total 2415 ml 240 ml Balance 2415 ml 240 ml Intake Oral 240 ml IV Total 2415 ml # Voids 0 # Bowel Movements 0 Result Diagram: 09/28/17 0405 09/28/17 0405 Imaging Last Impressions Chest X-Ray 09/27/17 1542 Signed Impressions: Service Date/Time: Wednesday, September 27, 2017 15:52 - CONCLUSION: No acute disease. Justo Kelly MD Upper Extremity Ultrasound 09/27/17 0000 Signed Impressions: Service Date/Time: Wednesday, September 27, 2017 17:08 - CONCLUSION: Normal examination. Justo Kelly MD Objective Remarks GENERAL: This is a well-nourished, well-developed patient, in no apparent distress. CARDIOVASCULAR: Regular rate and regular rhythm without murmurs, gallops, or rubs. RESPIRATORY: Clear to auscultation. Breath sounds equal bilaterally. No wheezes , rales, or rhonchi. GASTROINTESTINAL: Abdomen soft, non-tender, nondistended. Normal, active bowel sounds MUSCULOSKELETAL: erythema/swelling of both upper extremities. NEURO: awake but confused. Medications and IVs Inpatient Medications Acetaminophen (Tylenol) 650 mg Q6H PRN PO FEVER/PAIN SCALE 1 TO 2 Last administered on 09/28/17at 05:35; Start 09/27/17 at 18:45 Bisacodyl (Dulcolax Supp) 10 mg DAILY PRN RECTAL SEVERE CONSITIPATION; Start at 18:45 Cefepime HCl 1000 mg/Sodium Chloride 100 ml @ 200 mls/hr Q12H IV Last administered on 09/28/17at 08:18; Start 09/28/17 at 09:00 Lactulose (Lactulose Liq) 30 ml DAILY PRN PO SEVERE CONSITIPATION; Start at 18:45 Lorazepam (Ativan Inj) 2 mg ONCE ONCE IV PUSH Last administered on 09/27/17at 13:15; Start 09/27/17 at 13:15; Stop 09/27/17 at 13:16; Status DC Magnesium Hydroxide (Milk Of Magnesia Liq) 30 ml Q12H PRN PO Mild constipation ; Start 09/27/17 at 18:45 Ondansetron HCl (Zofran Inj) 4 mg Q6H PRN IVP NAUSEA OR VOMITING; Start at 18:45 Pharmacy Profile Note 0 ml @ 0 mls/hr UNSCH OTHER ; Start 09/27/17 at 18:45 Piperacillin Sod/ Tazobactam Sod 100 ml @ 200 mls/hr ONCE STAT IV Last administered on 09/27/17at 16:20; Start 09/27/17 at 15:42; Stop 09/27/17 at 16:11 ; Status DC Senna/Docusate Sodium (Shakira-Colace) 1 tab BID PO ; Start 09/27/17 at 21:00 Sennosides (Senokot) 17.2 mg Q12H PRN PO Moderate constipation; Start 09/27/17 at 18:45 Sodium Bicarbonate 150 meq/Dextrose 1,150 ml @ 200 mls/hr Q5H45M ONCE IV ; Start 09/28/17 at 21:00; Stop 09/29/17 at 02:44 Sodium Chloride 1,000 ml @ 200 mls/hr Q5H IV Last administered on 09/28/17at 08: 18; Start 09/27/17 at 18:45 Sodium Chloride (NS Flush) 2 ml BID IV FLUSH Last administered on 09/28/17at 08: 18; Start 09/27/17 at 21:00 Vancomycin HCl 1000 mg/Sodium Chloride 250 ml @ 250 mls/hr ONCE ONCE IV Last administered on 09/27/17at 21:54; Start 09/27/17 at 19:15; Stop 09/27/17 at 20:14 ; Status DC A/P Problem List: (1) Sepsis ICD Code: A41.9 - Sepsis, unspecified organism (2) Encephalopathy ICD Code: G93.40 - Encephalopathy, unspecified (3) Rhabdomyolysis ICD Code: M62.82 - Rhabdomyolysis Status: Acute (4) Cellulitis ICD Code: L03.90 - Cellulitis, unspecified Status: Acute (5) OLGA (acute kidney injury) ICD Code: N17.9 - Acute kidney failure, unspecified Assessment and Plan A/P 1. Sepsis: Temp 100.5, HR 107, WBC 19, Lactic Acid 3.0, Source-Cellulitis. S/ p Blood Cultures, Vanc/Zosyn in ER. U/a negative for UTI. Follow up cultures, continue IV Abx, IVF for hydration. 2. Cellulitis: Bilateral upper extremity cellulitis, erythema/edema on exam. Continue w/ Vanc/Cefepime. follow up cultures. consult ID. 3. Rhabdomyolysis: Severe. CPK 58,778. U/a w/ occult blood, Creatinine 3.02. Aggressive IVF for hydration, continue Sodium Bicarb. 4. OLGA: Creatinine 3.02, no previous labs for comparison, presumably new and secondary to Rhabdo. Aggressive IVF as above, Consult Nephrology for further recommendations, repeat labs in am. 5. Encephalopathy: Baseline unknown, currently being held in [facility] per Officers, likely underlying psych component. +agitated/ combative on arrival requiring sedation, now calm. Ativan prn. Urine Drug Screen +Marijuana. consider psych evaluation. 6. elevated LFT's- possibly due to rhabdo- will check hepatitis panel. 7. DVT Prophylaxis: SCD/Teds. Problem Qualifiers (1) Rhabdomyolysis: Qualified Codes: M62.82 - Rhabdomyolysis (2) Cellulitis: Qualified Codes: L03.119 - Cellulitis of unspecified part of limb Libby Rivera MD Sep 28, 2017 10:02
[2017-09-28] MEDS ORDERED: ceFAZolin 2 GM PREMIX 50 ML IV SCH (12:00)
--- NOTE | 2017-09-28 12:01 | PD.CONS ---
History of Present Illness Service Infectious Disease Consult Requested By Dr Rivera Reason for Consult Evaluate patient with bilateral upper extremity cellulitis Primary Care Physician No Primary Care Physician Diagnoses: History of Present Illness Patient seen and examined. Records reviewed. Patient is a very poor historian. 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 It apparently started developing redness and swelling, and he was given a dose of Rocephin. He was apparently in solitary and he was very combative. He was brought into the hospital and he has had some low-grade temps. His WBC was elevated at 19, creatinine 3.02, and his lactic acid was elevated. Urine drug screen was positive for marijuana. He was admitted for sepsis, as well as bilateral upper extremity cellulitis. Doppler ultrasound of the upper extremity did not show any DVT. In currently is calm and cooperative , but could not really give me a good history as how he developed all the sores he has in his upper extremity as well as in both lower extremity. He claims he lives in his house with his mom. Infectious disease consultation has been requested to evaluate the patient. Review of Systems ROS Limitations: Clinical Condition, Poor Historian Constitutional: COMPLAINS OF: Fever, Chills Eyes: DENIES: Eye pain Ears, nose, mouth, throat: DENIES: Oral lesions, Throat pain, Running Nose Respiratory: DENIES: Cough, Shortness of breath Cardiovascular: DENIES: Chest pain, Dyspnea on Exertion Gastrointestinal: DENIES: Nausea, Vomiting, Difficulty Swallowing Genitourinary: DENIES: Dysuria, Nocturia Musculoskeletal: DENIES: Joint pain Integumentary: COMPLAINS OF: Rash Psychiatric: COMPLAINS OF: Confusion Past Family Social History Allergies: Coded Allergies: No Known Allergies (Unverified , 09/27/17) Past Medical History Not known Past Surgical History Not known Active Ordered Medications Current Medications Medications (Trade) Dose Ordered Sig/Yvrose Route Start Time Stop Time Status Last Admin Sodium Bicarbonate 150 meq/Dextrose 1,150 ml @ 200 mls/hr Q5H45M ONCE IV 09/28/17 21:00 09/29/17 02:44 (NS Flush) 2 ml UNSCH PRN IV FLUSH 09/27/17 18:45 (NS Flush) 2 ml BID IV FLUSH 09/27/17 21:00 09/28/17 08:18 (Zofran Inj) 4 mg Q6H PRN IVP 09/27/17 18:45 (Tylenol) 650 mg Q6H PRN PO 09/27/17 18:45 09/28/17 05:35 (Shakira-Colace) 1 tab BID PO 09/27/17 21:00 (Milk Of Magnesia Liq) 30 ml Q12H PRN PO 09/27/17 18:45 (Senokot) 17.2 mg Q12H PRN PO 09/27/17 18:45 (Dulcolax Supp) 10 mg DAILY PRN RECTAL 09/27/17 18:45 (Lactulose Liq) 30 ml DAILY PRN PO 09/27/17 18:45 Pharmacy Profile Note 0 ml @ 0 mls/hr UNSCH OTHER 09/27/17 18:45 Cefepime HCl 1000 mg/Sodium Chloride 100 ml @ 200 mls/hr Q12H IV 09/28/17 09:00 09/28/17 08:18 Sodium Chloride 1,000 ml @ 200 mls/hr Q5H IV 09/27/17 18:45 09/28/17 10:24 Family History Not known Social History Smoker Has smoked marijuana Unclear if he has alcohol use or IV drug use Physical Exam Vital Signs Vital Signs Date Time Temp Pulse Resp B/P (MAP) Pulse Ox O2 Delivery O2 Flow Rate FiO2 09/28/17 08:00 97.7 97 18 151/84 (106) 93 09/28/17 04:00 97.1 99 19 140/65 (90) 99 09/28/17 01:35 97.5 103 19 144/79 (100) 98 09/27/17 21:55 98.7 97 13 162/83 (109) 100 Nasal Cannula 2.00 09/27/17 19:30 98 18 147/82 (103) 100 Nasal Cannula 2.00 09/27/17 19:00 102 19 149/91 (110) 100 Nasal Cannula 2.00 09/27/17 16:24 100.3 112 18 134/80 (98) 100 Nasal Cannula 2.00 09/27/17 15:21 100.3 108 18 143/88 (106) 100 Nasal Cannula 2.00 09/27/17 13:54 100.5 107 18 132/71 (91) 99 Room Air Physical Exam GENERAL: Patient is a well-nourished, well-developed male, awake and alert, not in respiratory distress. SKIN: Warm and dry. Has multiple scabs in both hands and BUE, BUE swollen with faint pink color worse on LUE than RUE. Multiple linear scabs in both knees as well as in both LE HEAD: Atraumatic. Normocephalic. No temporal wasting, or tenderness. EYES: [place] conjunctiva. No petechia or hemorrhage. Pupils equal, round and reactive to light. Extraocular movements full and intact. No scleral icterus. No injection or drainage. EARS, NOSE AND THROAT: Nose without bleeding or purulent nasal discharge. No sinus tenderness. Mucous membranes pink and moist. No oral lesions noted. NECK: Trachea midline. Supple and not tender, no meningeal signs CARDIOVASCULAR: Regular rate and rhythm. No murmurs, rubs or gallops heard RESPIRATORY: Clear to auscultation. Breath sounds equal bilaterally. No rales , wheezing or rhonchi ABDOMEN: Soft, non-tender, nondistended. Bowel sounds present and normoactive. No guarding. No rebound. No organomegaly. EXTREMITIES: No clubbing, cyanosis, or edema.No joint effusion, has good ROM. No calf tenderness. Well perfused and warm. NEUROLOGICAL: Awake and alert. Cranial nerves grossly intact. Motor grossly within normal limits. PSYCHIATRIC: Normal affect, calm and cooperative. LINE: No evidence of infection Laboratory Laboratory Tests Test 09/27/17 14:19 09/27/17 17:41 09/28/17 04:05 White Blood Count 19.8 16.6 Red Blood Count 4.31 3.59 Hemoglobin 12.2 10.2 Hematocrit 35.4 30.1 Mean Corpuscular Volume 82.2 83.8 Mean Corpuscular Hemoglobin 28.2 28.3 Mean Corpuscular Hemoglobin Concent 34.4 33.8 Red Cell Distribution Width 14.0 13.8 Platelet Count 330 241 Mean Platelet Volume 8.5 8.1 Neutrophils (%) (Auto) 92.8 90.9 Lymphocytes (%) (Auto) 2.2 4.7 Monocytes (%) (Auto) 4.9 4.3 Eosinophils (%) (Auto) 0.0 0.0 Basophils (%) (Auto) 0.1 0.1 Neutrophils # (Auto) 18.4 15.1 Lymphocytes # (Auto) 0.4 0.8 Monocytes # (Auto) 1.0 0.7 Eosinophils # (Auto) 0.0 0.0 Basophils # (Auto) 0.0 0.0 CBC Comment DIFF FINAL DIFF FINAL Differential Comment Urine Color YELLOW Urine Turbidity HAZY Urine pH 5.5 Urine Specific [place] 1.022 Urine Protein 100 Urine Glucose (UA) NEG Urine Ketones 10 Urine Occult Blood LARGE Urine Nitrite NEG Urine Bilirubin NEG Urine Urobilinogen LESS THAN 2.0 Urine Leukocyte Esterase NEG Urine RBC 1 Urine WBC 4 Urine Squamous Epithelial Cells <1 Urine Amorphous Sediment RARE Urine Mucus FEW Microscopic Urinalysis Comment CULT NOT INDICATED Blood Urea Nitrogen 56 36 Creatinine 3.02 1.36 Random Glucose 89 80 Total Protein 7.9 6.3 Albumin 3.6 2.8 Calcium Level 8.6 7.6 Alkaline Phosphatase 43 37 Aspartate Amino Transf (AST/SGOT) 420 418 Alanine Aminotransferase (ALT/SGPT) 124 121 Total Bilirubin 0.9 0.7 Sodium Level 140 142 Potassium Level 3.9 3.6 Chloride Level 105 112 Carbon Dioxide Level 20.0 19.6 Anion Gap 15 10 Estimat Glomerular Filtration Rate 21 54 Lactic Acid Level 3.0 1.2 Total Creatine Kinase 79780 30479 Creatine Kinase MB 92.0 53.7 Creatine Kinase MB % 0.2 0.2 Urine Opiates Screen NEG Urine Barbiturates Screen NEG Urine Amphetamines Screen NEG Urine Benzodiazepines Screen NEG Urine Cocaine Screen NEG Urine Cannabinoids Screen POS Date/Time Source Procedure Growth Status 09/27/17 14:19 Blood Peripheral Aerobic Blood Culture - Preliminary NO GROWTH IN 1 DAY Resulted 09/27/17 14:19 Blood Peripheral Anaerobic Blood Culture - Preliminary NO GROWTH IN 1 DAY Resulted Result Diagram: 09/28/17 0405 09/28/17 0405 Imaging RADIOLOGY STUDIES/FILMS REVIEWED Chest X-Ray 09/27/17 1542 Signed Impressions: Service Date/Time: Wednesday, September 27, 2017 15:52 - CONCLUSION: No acute disease. Justo Kelly MD Upper Extremity Ultrasound 09/27/17 0000 Signed Impressions: Service Date/Time: Wednesday, September 27, 2017 17:08 - CONCLUSION: Normal examination. Justo Kelly MD Assessment and Plan Assessment and Plan IMPRESSION Sepsis on admission likely bue to UE cellulitis Multiple scabs with some crusting, ?impetigo looking Confusion, better Renal insufficiency better RECOMMENDATION Change to IV Ancef Follow temps Follow C/S Monitor progress I will determine course of Abx depending on results of work-up I will follow along with you Thank you for this consultation Kassy Holland MD Sep 28, 2017 12:01
--- NOTE | 2017-09-28 12:20 | EKG ---
Date Performed: 09/27/2017 Time Performed: 17:51:54 PTAGE: 57 years EKG: Sinus rhythm NORMAL ECG NO PREVIOUS TRACING DOCTOR: Vitor Mitchell Interpretating Date/Time 09/28/2017 12:16:36
--- NOTE | 2017-09-28 13:23 | MB ---
cc: Fady Cat MD DATE: 09/28/2017 REASON FOR CONSULTATION: Elevated BUN and creatinine with acute renal failure. HISTORY OF PRESENT ILLNESS: This is a 57-year-old male with a past medical history of alcoholism. He was brought to the hospital from the group home after he had altered mental status and was found to have some cellulitis in the upper extremities and was combative. I was called to see the patient because of elevated BUN and creatinine. The patient does not have any previous labs, but when he came in here, the creatinine was 3.0. He was also found to have very high CPK of more than 58,000. Patient has been combative and off and on confused with some mental health issues in the past. He was uncooperative when he came in here, but now, he seems to be better. He started eating better. He is complaining of pain in his right lower chest and also in his back. He denies any nausea, vomiting. No shortness of breath, no chest pain. He has some difficulty in passing urine, but there is no dysuria or hematuria. PAST MEDICAL HISTORY: History of alcoholism. PAST SURGICAL HISTORY: None. REVIEW OF SYSTEMS: Patient has generalized weakness, feeling tired. Has pain in the lower chest and also in the back and his legs also. No shortness of breath. No chest pain. No palpitations. He has some difficulty in passing urine. No nausea or vomiting. No history of diarrhea. He was not taking any nonsteroid anti-inflammatory drugs. SOCIAL HISTORY: History of alcoholism in the past and smoking. FAMILY HISTORY: Noncontributory. ALLERGIES: HE HAS NO KNOWN DRUG ALLERGIES. MEDICATIONS: Currently, he is on following medications: normal saline at 200 an hour, Shakira-Colace, sodium bicarbonate, cefazolin 2 gm IV q. 8 hours, Zofran as needed. PHYSICAL EXAMINATION: GENERAL: Patient is awake, alert. He is still not fully oriented, not in acute distress. VITAL SIGNS: His last blood pressure is 151/84, temperature is 97.7, oxygen saturation is 93-99% on 2 L nasal cannula. HEENT: Pupils are mid, constricted. Nonicteric sclerae. Conjunctivae pale. NECK: Supple. JVD is not elevated. LUNGS: The patient has bilateral good air entry with occasional wheezing. HEART: S1, S2. Regular rhythm. ABDOMEN: Distended, soft, lax. There is mild epigastric tenderness. There is no rebound, rigidity. Bowel sounds positive. EXTREMITIES: There is mild edema in the legs, and throughout his legs and his arms, he has multiple areas of abrasions and some erythema and ecchymosis. INVESTIGATIONS: WBC count is 16.6, hemoglobin 10.2, platelet count of 241, neutrophils 90.9%. Sodium 142, potassium 3.6, chloride 112, bicarbonate 19.6, BUN 36, creatinine 1.36, calcium is 7.6, total bilirubin 0.7, AST is 418, ALT is 121. Creatinine kinase is 21,500, came down from 58,000. Total protein 6.3, albumin is 2.8. Toxicology screen was positive for cannabinoids. Urinalysis showing proteinuria, rbc 1, wbc 4, large blood. IMAGING STUDIES: The patient had chest x-ray done, which shows no acute lesion. Ultrasound left upper extremity done, which was normal. ASSESSMENT AND PLAN: 1. Acute kidney injury. 2. Rhabdomyolysis. 3. Cellulitis, rule out sepsis. 4. Encephalopathy. The patient has minimal proteinuria and has very high CPK level. Most likely has acute kidney injury because of the rhabdomyolysis and the creatinine is now improving. He has been nonoliguric. I agree with continuing the IV hydration with sodium bicarbonate and avoid any nephrotoxins. I will get the ultrasound of the kidneys since he has difficulty in passing the urine to make sure he does not have an element of obstruction. Thank you for the consultation, and I will follow the patient while he is in the hospital. MD TAVO Palomo/MIRELLA , 12:58 PM , 01:22 PM
--- NOTE | 2017-09-28 14:19 | RADRPT ---
EXAM DATE/TIME: 09/28/2017 13:32 [facility] COMPARISON: No previous studies available for comparison. INDICATIONS : Increased BUN/creatinine. MEDICAL HISTORY : Unable to obtain. SURGICAL HISTORY : Unable to obtain. ENCOUNTER: Initial ACUITY: 2 days PAIN SCORE: 2/10 LOCATION: Bilateral flank MEASUREMENTS: RIGHT KIDNEY: 10.9 x 4.8 x 5.3 cm LEFT KIDNEY: 12.0 x 5.3 x 6.0 cm FINDINGS: RIGHT KIDNEY: Renal cortex is normal in thickness and echotexture. No hydronephrosis, stone, or mass. LEFT KIDNEY: Renal cortex is normal in thickness and echotexture. No hydronephrosis, stone, or mass. BLADDER: Within normal limits given the degree of distension. CONCLUSION: Normal examination. Keny Hyman MD on September 28, 2017 at 14:16 Board Certified Radiologist. This report was verified electronically.
[2017-09-28] MEDS ORDERED: VANCOMYCIN INJ 1,250 MG in SODIUM CHLOR 0.9% 250 ML INJ 250 ML IV SCH (16:00)
[2017-09-28] MEDS ORDERED: SODIUM BICARBONATE 8.4% INJ 150 MEQ in DEXTROSE 5% IN WATE 1000ML INJ 1,000 ML IV ONE ×2 (21:00)
[2017-09-29] VITALS (7 sets, daily range): BP systolic 135–147; BP diastolic 65–78; PULSE 84–104; RESP 16–18; TEMP 97.4–98.4; O2SAT 94–98
[2017-09-29] MEDS: SODIUM CHLOR 0.9% 1000 ML INJ 1,000 ML IV SCH ×5 (04:51→20:19)
[2017-09-29 08:05] LABS: AUTOMATED NEUTROPHIL # 7.8 TH/MM3 (1.8-7.7); EOSINOPHIL % 0.2 % (0.0-4.0); HEMATOCRIT 27.1 % (39.0-51.0); HEMOGLOBIN 9.3 GM/DL (13.0-17.0); LYMPH % 8.4 % (9.0-44.0); LYMPHOCYTE # 0.8 TH/MM3 (1.0-4.8); MEAN CELL VOLUME 83.4 FL (80.0-100.0); MEAN CORPUSCULAR HEMOGLOBIN 28.6 PG (27.0-34.0); MEAN CORPUSCULAR HGB CONC 34.3 % (32.0-36.0); MEAN PLATELET VOLUME 7.8 FL (7.0-11.0); MONO % 5.5 % (0.0-8.0); MONOCYTE # 0.5 TH/MM3 (0-0.9); NEUT % 85.9 % (16.0-70.0); PLATELET COUNT 183 TH/MM3 (150-450); RED BLOOD COUNT 3.25 MIL/MM3 (4.50-5.90); RED CELL DISTRIBUTION WIDTH 13.9 % (11.6-17.2); WHITE BLOOD COUNT 9.1 TH/MM3 (4.0-11.0)
[2017-09-29 08:30] LABS: ALBUMIN 2.3 GM/DL (3.4-5.0); ALT (GPT) 97 U/L (12-78); AST (GOT) 274 U/L (15-37); BICARBONATE 28.7 MEQ/L (21.0-32.0); BLOOD UREA NITROGEN 13 MG/DL (7-18); CALCIUM 7.5 MG/DL (8.5-10.1); CHLORIDE 107 MEQ/L (98-107); CREATININE 0.86 MG/DL (0.60-1.30); GLOMERULAR FILTRATION RATE 91 ML/MIN (>89); GLUCOSE,RANDOM 100 MG/DL (74-106); SODIUM (NA) 142 MEQ/L (136-145)
[2017-09-29 08:56] LABS: ALKALINE PHOSPHATASE 32 U/L (45-117); TOTAL BILIRUBIN ADULT 0.5 MG/DL (0.2-1.0); TOTAL PROTEIN 5.4 GM/DL (6.4-8.2)
[2017-09-29] MEDS: SODIUM CHLORIDE 0.9% FLUSH 10 ML FLUSH IV FLUSH SCH ×2 (09:00→20:21)
[2017-09-29] MEDS: DOCUSATE SODIUM 50 MG/SENNA 8.6 MG TAB PO SCH ×2 (09:09→20:21)
[2017-09-29] MEDS ORDERED: POTASSIUM CHLORIDE 20 MEQ CONTROLLED RELEASE TAB PO ONE (09:15)
--- NOTE | 2017-09-29 09:15 | HHI.NPPN ---
Subjective Renal Failure: Acute History of Present Illness This is a 57-year-old male with a past medical history of alcoholism. He was brought to the hospital from the halfway after he had altered mental status and was found to have some cellulitis in the upper extremities and was combative. Nephrology was called to see the patient because of elevated BUN and creatinine. The patient does not have any previous labs, but when he came in here, the creatinine was 3.0. He was also found to have very high CPK of more than 58,000. Patient has been combative and off and on confused with some mental health issues in the past. He was uncooperative when he came in here, but now, he seems to be better. He started eating better. He is complaining of pain in his right lower chest and also in his back. He denies any nausea, vomiting. No shortness of breath, no chest pain. He has some difficulty in passing urine, but there is no dysuria or hematuria. Additional Remarks Patient is resting comfortably eating breakfast. IVF's infusing and creatinine at 0.86 today. (Reena Zheng) Review of Systems Respiratory Respiratory Remarks Denies any SOB (Reena Zheng) Cardiovascular Cardiac Remarks Denies any CP (Reena Zheng) Gastrointestinal GI Remarks Denies any abdominal pain (Reena Zheng) Objective Data Data Vital Signs Date Time Temp Pulse Resp B/P (MAP) Pulse Ox O2 Delivery O2 Flow Rate FiO2 09/29/17 04:00 98 18 135/71 (92) 97 09/29/17 00:00 98.4 104 18 146/76 (99) 98 09/28/17 20:00 98.8 114 20 142/78 (99) 99 09/28/17 16:16 104 09/28/17 16:00 97.4 104 18 133/71 (91) 99 09/28/17 12:00 95.4 113 17 164/87 (112) 98 09/28/17 11:51 107 (Reena Zheng) -: 09/29/17 0650 09/29/17 0650 Imaging Last Impressions Renal Ultrasound 09/28/17 0000 Signed Impressions: Service Date/Time: Thursday, September 28, 2017 13:32 - CONCLUSION: Normal examination. Keny Hyman MD Chest X-Ray 09/27/17 1542 Signed Impressions: Service Date/Time: Wednesday, September 27, 2017 15:52 - CONCLUSION: No acute disease. Justo Kelly MD Upper Extremity Ultrasound 09/27/17 0000 Signed Impressions: Service Date/Time: Wednesday, September 27, 2017 17:08 - CONCLUSION: Normal examination. Justo Kelly MD (Gellermann,Reena M. [employer]) Physical Exam General Appearance: No Acute Distress, Comfortable (Gellermann,Reena M. [employer]) Pulmonary Resp Exam: Breath Sounds Equal, No Distress, Diminished Breath Sounds (GellermannReena M. [employer]) Cardiology CV Exam: Regular, Normal Sinus Rhythm, Tachycardia (Gellermann,Reena M. [employer]) Gastrointestinal/Abdomen GI Exam: Soft, Non-Tender (Gellermann,Reena M. [employer]) Genitourinary Exam: Flank Non-Tender (GellermannReena M. [employer]) Integumentary Skin Exam: Warm, Dry (Gellermann,Reena M. [employer]) Extremeties Extremities Exam: Moderate Edema (Gellermann,Reena M. [employer]) Neurologic Neuro Exam: Alert, Awake (Gellermann,Reena M. [employer]) Assessment/Plan Discussed Condition With: Patient Assessment Summary: OLGA/Acute Renal Failure Electrolyte Assessment: Hypokalemia Problem List: (1) OLGA (acute kidney injury) ICD Codes: N17.9 - Acute kidney failure, unspecified Plan: Acute kidney injury most likely because of the rhabdomyolysis. He has been nonoliguric. Minimal proteinuria CPK improving Renal US normal Plan: Continue the IV hydration with sodium bicarbonate can reduce rate with improving CPK Creatinine at 0.86 today Hypokalemia at 3.2 replacement ordered. Avoid any nephrotoxins as possible (Gellermann,Reena M. [employer]) Problem List: (1) OLGA (acute kidney injury) ICD Codes: N17.9 - Acute kidney failure, unspecified Plan: Acute kidney injury most likely because of the rhabdomyolysis. He has been nonoliguric. Minimal proteinuria CPK improving Renal US normal Plan: Continue the IV hydration with sodium bicarbonate can reduce rate with improving CPK Creatinine at 0.86 today Hypokalemia at 3.2 replacement ordered. Avoid any nephrotoxins as possible. Patient seen and examined, agree with above. Creatinine normalized, CPK improving. Nephrology to follow PRN if needed. (Milton Cat MD) Reena Zheng Sep 29, 2017 09:15 Milton Cat MD Sep 29, 2017 17:44
--- NOTE | 2017-09-29 10:22 | HHI.PR ---
Subjective Remarks in no acute distress. afebrile today. upper extremities look better today. Objective Vitals Vital Signs Date Time Temp Pulse Resp B/P (MAP) Pulse Ox O2 Delivery O2 Flow Rate FiO2 09/29/17 08:00 97.4 84 16 135/65 (88) 94 09/29/17 04:00 98 18 135/71 (92) 97 09/29/17 00:00 98.4 104 18 146/76 (99) 98 09/28/17 20:00 98.8 114 20 142/78 (99) 99 09/28/17 16:16 104 09/28/17 16:00 97.4 104 18 133/71 (91) 99 09/28/17 12:00 95.4 113 17 164/87 (112) 98 09/28/17 11:51 107 I/O 09/28/17 09/28/17 09/28/17 09/29/17 09/29/17 09/29/17 07:00 15:00 23:00 07:00 15:00 23:00 Intake Total 240 ml 1100 ml 1285 ml 1780 ml Output Total 300 ml Balance 240 ml 1100 ml 1285 ml 1480 ml Intake Oral 240 ml 480 ml IV Total 1100 ml 1285 ml 1300 ml Output Urine Total 300 ml # Voids 0 # Bowel Movements 0 1 Result Diagram: 09/29/17 0650 09/29/17 0650 Imaging Last Impressions Renal Ultrasound 09/28/17 0000 Signed Impressions: Service Date/Time: Thursday, September 28, 2017 13:32 - CONCLUSION: Normal examination. Keny Hyman MD Chest X-Ray 09/27/17 1542 Signed Impressions: Service Date/Time: Wednesday, September 27, 2017 15:52 - CONCLUSION: No acute disease. Justo Kelly MD Upper Extremity Ultrasound 09/27/17 0000 Signed Impressions: Service Date/Time: Wednesday, September 27, 2017 17:08 - CONCLUSION: Normal examination. Justo Kelly MD Objective Remarks GENERAL: This is a well-nourished, well-developed patient, in no apparent distress. CARDIOVASCULAR: Regular rate and regular rhythm without murmurs, gallops, or rubs. RESPIRATORY: Clear to auscultation. Breath sounds equal bilaterally. No wheezes , rales, or rhonchi. GASTROINTESTINAL: Abdomen soft, non-tender, nondistended. Normal, active bowel sounds MUSCULOSKELETAL: erythema/swelling of both upper extremities. NEURO: awake but confused. Medications and IVs Inpatient Medications Acetaminophen (Tylenol) 650 mg Q6H PRN PO FEVER/PAIN SCALE 1 TO 2 Last administered on 09/28/17at 05:35; Start 09/27/17 at 18:45 Bisacodyl (Dulcolax Supp) 10 mg DAILY PRN RECTAL SEVERE CONSITIPATION; Start at 18:45 Cefazolin Sodium 2000 mg/Sodium Chloride 100 ml @ 200 mls/hr Q8H IV Last administered on 09/29/17at 05:19; Start 09/28/17 at 14:00 Cefazolin Sodium/ Dextrose 50 ml @ 100 mls/hr Q8H IV ; Start 09/28/17 at 12:00; Stop 09/28/17 at 12:09; Status DC Cefepime HCl 1000 mg/Sodium Chloride 100 ml @ 200 mls/hr Q12H IV Last administered on 09/28/17at 08:18; Start 09/28/17 at 09:00; Stop 09/28/17 at 11:51; Status DC Lactulose (Lactulose Liq) 30 ml DAILY PRN PO SEVERE CONSITIPATION; Start at 18:45 Lorazepam (Ativan Inj) 2 mg ONCE ONCE IV PUSH Last administered on 09/27/17at 13:15; Start 09/27/17 at 13:15; Stop 09/27/17 at 13:16; Status DC Magnesium Hydroxide (Milk Of Magnesia Liq) 30 ml Q12H PRN PO Mild constipation ; Start 09/27/17 at 18:45 Ondansetron HCl (Zofran Inj) 4 mg Q6H PRN IVP NAUSEA OR VOMITING; Start at 18:45 Pharmacy Profile Note 0 ml @ 0 mls/hr UNSCH OTHER ; Start 09/27/17 at 18:45; Stop 09/28/17 at 11:51; Status DC Piperacillin Sod/ Tazobactam Sod 100 ml @ 200 mls/hr ONCE STAT IV Last administered on 09/27/17at 16:20; Start 09/27/17 at 15:42; Stop 09/27/17 at 16:11 ; Status DC Potassium Chloride (KCl) 40 meq ONCE ONCE PO Last administered on 09/29/17at 09: 46; Start 09/29/17 at 09:15; Stop 09/29/17 at 09:36; Status DC Senna/Docusate Sodium (Shakira-Colace) 1 tab BID PO Last administered on 09/29/17at 09:09; Start 09/27/17 at 21:00 Sennosides (Senokot) 17.2 mg Q12H PRN PO Moderate constipation; Start 09/27/17 at 18:45 Sodium Bicarbonate 150 meq/Dextrose 1,150 ml @ 200 mls/hr Q5H45M ONCE IV Last administered on 09/28/17at 22:42; Start 09/28/17 at 21:00; Stop 09/29/17 at 02:44; Status DC Sodium Chloride 1,000 ml @ 200 mls/hr Q5H IV Last administered on 09/29/17at 04: 55; Start 09/27/17 at 18:45 Sodium Chloride (NS Flush) 2 ml BID IV FLUSH Last administered on 09/28/17at 08: 18; Start 09/27/17 at 21:00 Vancomycin HCl 1000 mg/Sodium Chloride 250 ml @ 250 mls/hr ONCE ONCE IV Last administered on 09/27/17at 21:54; Start 09/27/17 at 19:15; Stop 09/27/17 at 20:14 ; Status DC A/P Problem List: (1) Sepsis ICD Code: A41.9 - Sepsis, unspecified organism (2) Encephalopathy ICD Code: G93.40 - Encephalopathy, unspecified (3) Rhabdomyolysis ICD Code: M62.82 - Rhabdomyolysis Status: Acute (4) Cellulitis ICD Code: L03.90 - Cellulitis, unspecified Status: Acute (5) OLGA (acute kidney injury) ICD Code: N17.9 - Acute kidney failure, unspecified Assessment and Plan A/P 1. Sepsis due to Cellulitis of the upper extremities/ upper back: Bilateral upper extremity cellulitis, erythema/edema on exam. ID consult appreciated; changed to Ancef- follow the blood cultures- 2. Rhabdomyolysis- improving; continue IVF for hydration- continue to monitor. 3. OLGA: improving. Aggressive IVF as above.nephrology evaluation appreciated. 4. Encephalopathy: Baseline unknown, currently being held in [facility] per Officers, likely underlying psych component. +agitated/ combative on arrival requiring sedation, now calm. Ativan prn. Urine Drug Screen +Marijuana. 5. elevated LFT's- possibly due to rhabdo- hepatitis panel negative. 6.hypokalemia; will replace. 7. DVT Prophylaxis: SCD/Teds. Discharge Planning dc planning within the next one-tow days pending the clinical course. Problem Qualifiers (1) Rhabdomyolysis: Qualified Codes: M62.82 - Rhabdomyolysis (2) Cellulitis: Qualified Codes: L03.119 - Cellulitis of unspecified part of limb Libby Rivera MD Sep 29, 2017 10:22
[2017-09-29] MEDS ORDERED: POTASSIUM CHLORIDE 10 MEQ CONTROLLED RELEASE TAB PO ONE (10:30)
--- NOTE | 2017-09-29 12:33 | HHI.IDPN ---
Subjective Subjective Remarks Patient is a 57-year-old male, was spinning Detention for the last 5 days, apparently when he was admitted in residential, he already has the wounds in his upper extremities. It apparently started developing redness and swelling, and he was given a dose of Rocephin. He was apparently in solitary and he was very combative. He was brought into the hospital and he has had some low-grade temps. His WBC was elevated at 19, creatinine 3.02, and his lactic acid was elevated. Urine drug screen was positive for marijuana. He was admitted for sepsis, as well as bilateral upper extremity cellulitis. Doppler ultrasound of the upper extremity did not show any DVT. In currently is calm and cooperative , but could not really give me a good history as how he developed all the sores he has in his upper extremity as well as in both lower extremity. He claims he lives in his house with his mom. Infectious disease consultation has been requested to evaluate the patient. Notes reviewed Temps ok Guard in room telling me that patient picks on his lesions in UE BC negative Antibiotics Ancef Current Medications Medications (Trade) Dose Ordered Sig/Yvrose Route Start Time Stop Time Status Last Admin (NS Flush) 2 ml UNSCH PRN IV FLUSH 09/27/17 18:45 (NS Flush) 2 ml BID IV FLUSH 09/27/17 21:00 09/28/17 08:18 (Zofran Inj) 4 mg Q6H PRN IVP 09/27/17 18:45 (Tylenol) 650 mg Q6H PRN PO 09/27/17 18:45 09/28/17 05:35 (Shakira-Colace) 1 tab BID PO 09/27/17 21:00 09/29/17 09:09 (Milk Of Magnesia Liq) 30 ml Q12H PRN PO 09/27/17 18:45 (Senokot) 17.2 mg Q12H PRN PO 09/27/17 18:45 (Dulcolax Supp) 10 mg DAILY PRN RECTAL 09/27/17 18:45 (Lactulose Liq) 30 ml DAILY PRN PO 09/27/17 18:45 Sodium Chloride 1,000 ml @ 200 mls/hr Q5H IV 09/27/17 18:45 09/29/17 11:05 Cefazolin Sodium 2000 mg/Sodium Chloride 100 ml @ 200 mls/hr Q8H IV 09/28/17 14:00 09/29/17 12:12 Lines Line with no evidence of infection Past Medical History Not known Allergies: Coded Allergies: No Known Allergies (Unverified , 09/27/17) Objective . Vital Signs Date Time Temp Pulse Resp B/P (MAP) Pulse Ox O2 Delivery O2 Flow Rate FiO2 09/29/17 12:00 98.2 86 17 138/76 (96) 96 09/29/17 08:00 97.4 84 16 135/65 (88) 94 09/29/17 04:00 98 18 135/71 (92) 97 09/29/17 00:00 98.4 104 18 146/76 (99) 98 09/28/17 20:00 98.8 114 20 142/78 (99) 99 09/28/17 16:16 104 09/28/17 16:00 97.4 104 18 133/71 (91) 99 . Laboratory Tests Test 09/27/17 14:19 09/28/17 04:05 09/29/17 06:50 White Blood Count 19.8 TH/MM3 16.6 TH/MM3 9.1 TH/MM3 Red Blood Count 4.31 MIL/MM3 3.59 MIL/MM3 3.25 MIL/MM3 Hemoglobin 12.2 GM/DL 10.2 GM/DL 9.3 GM/DL Hematocrit 35.4 % 30.1 % 27.1 % Mean Corpuscular Volume 82.2 FL 83.8 FL 83.4 FL Mean Corpuscular Hemoglobin 28.2 PG 28.3 PG 28.6 PG Mean Corpuscular Hemoglobin Concent 34.4 % 33.8 % 34.3 % Red Cell Distribution Width 14.0 % 13.8 % 13.9 % Platelet Count 330 TH/MM3 241 TH/MM3 183 TH/MM3 Mean Platelet Volume 8.5 FL 8.1 FL 7.8 FL Neutrophils (%) (Auto) 92.8 % 90.9 % 85.9 % Lymphocytes (%) (Auto) 2.2 % 4.7 % 8.4 % Monocytes (%) (Auto) 4.9 % 4.3 % 5.5 % Eosinophils (%) (Auto) 0.0 % 0.0 % 0.2 % Basophils (%) (Auto) 0.1 % 0.1 % 0.0 % Neutrophils # (Auto) 18.4 TH/MM3 15.1 TH/MM3 7.8 TH/MM3 Lymphocytes # (Auto) 0.4 TH/MM3 0.8 TH/MM3 0.8 TH/MM3 Monocytes # (Auto) 1.0 TH/MM3 0.7 TH/MM3 0.5 TH/MM3 Eosinophils # (Auto) 0.0 TH/MM3 0.0 TH/MM3 0.0 TH/MM3 Basophils # (Auto) 0.0 TH/MM3 0.0 TH/MM3 0.0 TH/MM3 CBC Comment DIFF FINAL DIFF FINAL DIFF FINAL Differential Comment Laboratory Tests Test 09/27/17 14:19 09/27/17 17:41 09/28/17 04:05 09/29/17 06:50 Blood Urea Nitrogen 56 MG/DL 36 MG/DL 13 MG/DL Creatinine 3.02 MG/DL 1.36 MG/DL 0.86 MG/DL Random Glucose 89 MG/DL 80 MG/DL 100 MG/DL Total Protein 7.9 GM/DL 6.3 GM/DL 5.4 GM/DL Albumin 3.6 GM/DL 2.8 GM/DL 2.3 GM/DL Calcium Level 8.6 MG/DL 7.6 MG/DL 7.5 MG/DL Alkaline Phosphatase 43 U/L 37 U/L 32 U/L Aspartate Amino Transf (AST/SGOT) 420 U/L 418 U/L 274 U/L Alanine Aminotransferase (ALT/SGPT) 124 U/L 121 U/L 97 U/L Total Bilirubin 0.9 MG/DL 0.7 MG/DL 0.5 MG/DL Sodium Level 140 MEQ/L 142 MEQ/L 142 MEQ/L Potassium Level 3.9 MEQ/L 3.6 MEQ/L 3.2 MEQ/L Chloride Level 105 MEQ/L 112 MEQ/L 107 MEQ/L Carbon Dioxide Level 20.0 MEQ/L 19.6 MEQ/L 28.7 MEQ/L Anion Gap 15 MEQ/L 10 MEQ/L 6 MEQ/L Estimat Glomerular Filtration Rate 21 ML/MIN 54 ML/MIN 91 ML/MIN Lactic Acid Level 3.0 mmol/L 1.2 mmol/L Total Creatine Kinase 27671 U/L 73088 U/L 9067 U/L Creatine Kinase MB 92.0 NG/ML 53.7 NG/ML 9.0 NG/ML Creatine Kinase MB % 0.2 % 0.2 % 0.1 % Microbiology Date/Time Source Procedure Growth Status 09/27/17 14:19 Blood Peripheral Aerobic Blood Culture - Preliminary NO GROWTH IN 2 DAYS Resulted 09/27/17 14:19 Blood Peripheral Anaerobic Blood Culture - Preliminary NO GROWTH IN 2 DAYS Resulted 09/27/17 14:10 Blood Peripheral Aerobic Blood Culture - Preliminary NO GROWTH IN 2 DAYS Resulted 09/27/17 14:10 Blood Peripheral Anaerobic Blood Culture - Preliminary NO GROWTH IN 2 DAYS Resulted Imaging Last Impressions Renal Ultrasound 09/28/17 0000 Signed Impressions: Service Date/Time: Thursday, September 28, 2017 13:32 - CONCLUSION: Normal examination. Keny Hyman MD Chest X-Ray 09/27/17 1542 Signed Impressions: Service Date/Time: Wednesday, September 27, 2017 15:52 - CONCLUSION: No acute disease. Justo Kelly MD Upper Extremity Ultrasound 09/27/17 0000 Signed Impressions: Service Date/Time: Wednesday, September 27, 2017 17:08 - CONCLUSION: Normal examination. Justo Kelly MD Physical Exam GENERAL: awake and alert, not in respiratory distress. SKIN: Warm and dry. Has multiple scabs in both hands and BUE, BUE swollen with almost resolved faint pink color. RUE swelling worse kym LUE Multiple linear scabs in both knees as well as in both LE HEAD: Atraumatic. Normocephalic. No temporal wasting, or tenderness. EYES: [place] conjunctiva. No petechia or hemorrhage. Pupils equal, round and reactive to light. Extraocular movements full and intact. No scleral icterus. No injection or drainage. EARS, NOSE AND THROAT: Nose without bleeding or purulent nasal discharge. No sinus tenderness. Mucous membranes pink and moist. No oral lesions noted. NECK: Trachea midline. Supple and not tender, no meningeal signs CARDIOVASCULAR: Regular rate and rhythm. No murmurs, rubs or gallops heard RESPIRATORY: Clear to auscultation. Breath sounds equal bilaterally. No rales , wheezing or rhonchi ABDOMEN: Soft, non-tender, nondistended. Bowel sounds present and normoactive. No guarding. No rebound. No organomegaly. EXTREMITIES: No clubbing, cyanosis, or edema.No joint effusion, has good ROM. No calf tenderness. Well perfused and warm. See skin exam NEUROLOGICAL: Awake and alert. Cranial nerves grossly intact. Motor grossly within normal limits. PSYCHIATRIC: Normal affect, calm and cooperative. LINE: No evidence of infection Assessment & Plan Remarks IMPRESSION Sepsis on admission likely due to UE cellulitis, better Cellulitis BUE, with multiple scabs with some crusting, ?impetigo looking Confusion, better Renal insufficiency better RECOMMENDATION Continue to IV Ancef today - change to Keflex 500 QID x 10 days tomorrow OK to D/C tomorrow Elevate BUE Monitor progress Clinically better D/W DR Rivera (HEPAS) Kassy Holland MD Sep 29, 2017 12:33
[2017-09-29] MEDS: ACETAMINOPHEN 325 MG TAB PO PRN (14:02)
[2017-09-30] VITALS: BP 167/81; PULSE 96; RESP 18; TEMP 97.7; O2SAT 97
[2017-09-30] MEDS: SODIUM CHLOR 0.9% 1000 ML INJ 1,000 ML IV SCH ×3 (00:49→11:45)
[2017-09-30 04:00] VITALS: BP 137/78; PULSE 102; RESP 20; TEMP 98.3; O2SAT 96
[2017-09-30 08:00] VITALS: BP 163/83; PULSE 94; RESP 18; TEMP 97.4; O2SAT 97
[2017-09-30] MEDS: SODIUM CHLORIDE 0.9% FLUSH 10 ML FLUSH IV FLUSH SCH (08:43)
[2017-09-30] MEDS: DOCUSATE SODIUM 50 MG/SENNA 8.6 MG TAB PO SCH (08:55)
[2017-09-30] MEDS: ACETAMINOPHEN 325 MG TAB PO PRN (09:02)
--- NOTE | 2017-09-30 09:30 | HHI.PR ---
Subjective Remarks in no acute distress. no fever. overall looks and feels better today. d/w the RN. Objective Vitals Vital Signs Date Time Temp Pulse Resp B/P (MAP) Pulse Ox O2 Delivery O2 Flow Rate FiO2 09/30/17 08:00 97.4 94 18 163/83 (109) 97 09/30/17 04:00 98.3 102 20 137/78 (97) 96 09/30/17 00:00 97.7 96 18 167/81 (109) 97 09/29/17 20:10 98 09/29/17 20:00 97.7 99 18 147/78 (101) 97 09/29/17 16:00 97.8 95 17 145/78 (100) 97 09/29/17 15:02 18 09/29/17 12:00 98.2 86 17 138/76 (96) 96 I/O 09/29/17 09/29/17 09/29/17 09/30/17 09/30/17 09/30/17 07:00 15:00 23:00 07:00 15:00 23:00 Intake Total 1780 ml 2100 ml 1200 ml Output Total 300 ml 500 ml 1700 ml Balance 1480 ml 1600 ml -500 ml Intake Oral 480 ml 1000 ml IV Total 1300 ml 1100 ml 1200 ml Output Urine Total 300 ml 500 ml 1700 ml # Voids 4 # Bowel Movements 1 2 1 Result Diagram: 09/29/17 0650 09/29/17 0650 Imaging Last Impressions Renal Ultrasound 09/28/17 0000 Signed Impressions: Service Date/Time: Thursday, September 28, 2017 13:32 - CONCLUSION: Normal examination. Keny Hyman MD Chest X-Ray 09/27/17 1542 Signed Impressions: Service Date/Time: Wednesday, September 27, 2017 15:52 - CONCLUSION: No acute disease. Justo Kelly MD Upper Extremity Ultrasound 09/27/17 0000 Signed Impressions: Service Date/Time: Wednesday, September 27, 2017 17:08 - CONCLUSION: Normal examination. Justo Kelly MD Objective Remarks GENERAL: This is a well-nourished, well-developed patient, in no apparent distress. CARDIOVASCULAR: Regular rate and regular rhythm without murmurs, gallops, or rubs. RESPIRATORY: Clear to auscultation. Breath sounds equal bilaterally. No wheezes , rales, or rhonchi. GASTROINTESTINAL: Abdomen soft, non-tender, nondistended. Normal, active bowel sounds MUSCULOSKELETAL: erythema/swelling of both upper extremities. NEURO: awake but confused. Procedures I/D of the upper back abscess. Medications and IVs Inpatient Medications Acetaminophen (Tylenol) 650 mg Q6H PRN PO FEVER/PAIN SCALE 1 TO 2 Last administered on 09/30/17at 09:02; Start 09/27/17 at 18:45 Bisacodyl (Dulcolax Supp) 10 mg DAILY PRN RECTAL SEVERE CONSITIPATION; Start at 18:45 Cefazolin Sodium 2000 mg/Sodium Chloride 100 ml @ 200 mls/hr Q8H IV Last administered on 09/30/17at 05:44; Start 09/28/17 at 14:00 Cefazolin Sodium/ Dextrose 50 ml @ 100 mls/hr Q8H IV ; Start 09/28/17 at 12:00; Stop 09/28/17 at 12:09; Status DC Cefepime HCl 1000 mg/Sodium Chloride 100 ml @ 200 mls/hr Q12H IV Last administered on 09/28/17at 08:18; Start 09/28/17 at 09:00; Stop 09/28/17 at 11:51; Status DC Lactulose (Lactulose Liq) 30 ml DAILY PRN PO SEVERE CONSITIPATION; Start at 18:45 Lorazepam (Ativan Inj) 2 mg ONCE ONCE IV PUSH Last administered on 09/27/17at 13:15; Start 09/27/17 at 13:15; Stop 09/27/17 at 13:16; Status DC Magnesium Hydroxide (Milk Of Magnesia Liq) 30 ml Q12H PRN PO Mild constipation ; Start 09/27/17 at 18:45 Ondansetron HCl (Zofran Inj) 4 mg Q6H PRN IVP NAUSEA OR VOMITING; Start at 18:45 Pharmacy Profile Note 0 ml @ 0 mls/hr UNSCH OTHER ; Start 09/27/17 at 18:45; Stop 09/28/17 at 11:51; Status DC Piperacillin Sod/ Tazobactam Sod 100 ml @ 200 mls/hr ONCE STAT IV Last administered on 09/27/17at 16:20; Start 09/27/17 at 15:42; Stop 09/27/17 at 16:11 ; Status DC Potassium Chloride (KCl) 30 meq ONCE ONCE PO Last administered on 09/29/17at 12: 12; Start 09/29/17 at 10:30; Stop 09/29/17 at 11:14; Status DC Senna/Docusate Sodium (Shakira-Colace) 1 tab BID PO Last administered on 09/30/17at 08:55; Start 09/27/17 at 21:00 Sennosides (Senokot) 17.2 mg Q12H PRN PO Moderate constipation; Start 09/27/17 at 18:45 Sodium Bicarbonate 150 meq/Dextrose 1,150 ml @ 200 mls/hr Q5H45M ONCE IV Last administered on 09/28/17at 22:42; Start 09/28/17 at 21:00; Stop 09/29/17 at 02:44; Status DC Sodium Chloride 1,000 ml @ 200 mls/hr Q5H IV Last administered on 09/30/17at 05: 43; Start 09/27/17 at 18:45 Sodium Chloride (NS Flush) 2 ml BID IV FLUSH Last administered on 09/28/17at 08: 18; Start 09/27/17 at 21:00 Vancomycin HCl 1000 mg/Sodium Chloride 250 ml @ 250 mls/hr ONCE ONCE IV Last administered on 09/27/17at 21:54; Start 09/27/17 at 19:15; Stop 09/27/17 at 20:14 ; Status DC A/P Problem List: (1) Sepsis ICD Code: A41.9 - Sepsis, unspecified organism (2) Encephalopathy ICD Code: G93.40 - Encephalopathy, unspecified (3) Rhabdomyolysis ICD Code: M62.82 - Rhabdomyolysis Status: Acute (4) Cellulitis ICD Code: L03.90 - Cellulitis, unspecified Status: Acute (5) OLGA (acute kidney injury) ICD Code: N17.9 - Acute kidney failure, unspecified Assessment and Plan A/P 1. Sepsis due to Cellulitis of the upper extremities/ upper back: seems to be improving. ID consult appreciated; changed to Ancef-blood cultures negative; will switch to po Keflex. 2. Rhabdomyolysis- improving; continue IVF for hydration- continue to monitor. 3. OLGA: improving. Aggressive IVF as above.nephrology evaluation appreciated. 4. Encephalopathy: improved. Urine Drug Screen +Marijuana. 5. elevated LFT's- possibly due to rhabdo- hepatitis panel negative. 6.hypokalemia; replaced. 7. DVT Prophylaxis: SCD/Teds. Discharge Planning dc back to [facility]- probably later today-pending BMP/ CPK level. f/u; pcp. d/s the patient and RN. Problem Qualifiers (1) Rhabdomyolysis: Qualified Codes: M62.82 - Rhabdomyolysis (2) Cellulitis: Qualified Codes: L03.119 - Cellulitis of unspecified part of limb Libby Rivera MD Sep 30, 2017 09:30
[2017-09-30] MEDS ORDERED: CEPH-460 PO (09:32)
[2017-09-30] MEDS ORDERED: IBUP200T47 PO (09:32)
--- NOTE | 2017-09-30 09:33 | HHI.DS ---
Discharge Summary Admission Date Sep 27, 2017 at 18:41 Discharge Date: Sep 30, 2017 Admitting Diagnosis Rhabdomyolysis, sepsis, acute renal failure, cellulitis (1) Sepsis ICD Code: A41.9 - Sepsis, unspecified organism Diagnosis: Principal (2) Encephalopathy ICD Code: G93.40 - Encephalopathy, unspecified Diagnosis: Principal (3) Rhabdomyolysis ICD Code: M62.82 - Rhabdomyolysis Diagnosis: Principal Status: Acute (4) Cellulitis ICD Code: L03.90 - Cellulitis, unspecified Diagnosis: Principal Status: Acute (5) OLGA (acute kidney injury) ICD Code: N17.9 - Acute kidney failure, unspecified Diagnosis: Principal Procedures I/D of the upper back abscess. Brief History - From Admission This is a 57-year-old male with unknown PMH who was brought [facility] the [facility] secondary to AMS and bilateral upper extremity cellulitis. On arrival, patient found to be significantly combative, uncooperative with exam, requiring sedation. Currently calm, but remains uncooperative w/ questions/exam. Officers at bedside providing some history, pt was apparently in [facility], held in [facility], noted to have bilateral upper extremity cellulitis and AMS. Per report, given Rocephin IV prior to transport to ER. On arrival, BP 132/71, HR 107, O2 sat 100% on RA, Temp 100.5. WBC 19.8. Creatinine 3.02, no previous labs for comparison. Lactic Acid 3.0. AST 420, ALT 124, ALP 43. CPK 58,778. UA negative for UTI. Urine Drug Screen positive for Marijuana. CXR no acute findings. Doppler UE normal. +bilateral upper extremity cellulitis w / swelling on exam, S/p Vanc/Zosyn in ER. CBC/BMP: 09/29/17 0650 09/29/17 0650 Significant Findings Laboratory Tests Test 09/27/17 14:19 09/27/17 17:41 09/28/17 04:05 09/28/17 15:21 White Blood Count 19.8 TH/MM3 (4.0-11.0) 16.6 TH/MM3 (4.0-11.0) Red Blood Count 4.31 MIL/MM3 (4.50-5.90) 3.59 MIL/MM3 (4.50-5.90) Hemoglobin 12.2 GM/DL (13.0-17.0) 10.2 GM/DL (13.0-17.0) Hematocrit 35.4 % (39.0-51.0) 30.1 % (39.0-51.0) Neutrophils (%) (Auto) 92.8 % (16.0-70.0) 90.9 % (16.0-70.0) Lymphocytes (%) (Auto) 2.2 % (9.0-44.0) 4.7 % (9.0-44.0) Neutrophils # (Auto) 18.4 TH/MM3 (1.8-7.7) 15.1 TH/MM3 (1.8-7.7) Lymphocytes # (Auto) 0.4 TH/MM3 (1.0-4.8) 0.8 TH/MM3 (1.0-4.8) Monocytes # (Auto) 1.0 TH/MM3 (0-0.9) Urine Turbidity HAZY (CLEAR) Urine Protein 100 mg/dL (NEG-TRACE) Urine Ketones 10 mg/dL (NEG) Urine Occult Blood LARGE (NEG) Urine Mucus FEW /lpf (OCC) Blood Urea Nitrogen 56 MG/DL (7-18) 36 MG/DL (7-18) Creatinine 3.02 MG/DL (0.60-1.30) 1.36 MG/DL (0.60-1.30) Alkaline Phosphatase 43 U/L (45-117) 37 U/L (45-117) Aspartate Amino Transf (AST/SGOT) 420 U/L (15-37) 418 U/L (15-37) Alanine Aminotransferase (ALT/SGPT) 124 U/L (12-78) 121 U/L (12-78) Carbon Dioxide Level 20.0 MEQ/L (21.0-32.0) 19.6 MEQ/L (21.0-32.0) Estimat Glomerular Filtration Rate 21 ML/MIN (>89) 54 ML/MIN (>89) Lactic Acid Level 3.0 mmol/L (0.4-2.0) Total Creatine Kinase 61810 U/L (39-308) 22953 U/L (39-308) Creatine Kinase MB 92.0 NG/ML (0.5-3.6) 53.7 NG/ML (0.5-3.6) Urine Cannabinoids Screen POS (NEG) Total Protein 6.3 GM/DL (6.4-8.2) Albumin 2.8 GM/DL (3.4-5.0) Calcium Level 7.6 MG/DL (8.5-10.1) Chloride Level 112 MEQ/L (98-107) Test 09/29/17 06:50 Red Blood Count 3.25 MIL/MM3 (4.50-5.90) Hemoglobin 9.3 GM/DL (13.0-17.0) Hematocrit 27.1 % (39.0-51.0) Neutrophils (%) (Auto) 85.9 % (16.0-70.0) Lymphocytes (%) (Auto) 8.4 % (9.0-44.0) Neutrophils # (Auto) 7.8 TH/MM3 (1.8-7.7) Lymphocytes # (Auto) 0.8 TH/MM3 (1.0-4.8) Total Protein 5.4 GM/DL (6.4-8.2) Albumin 2.3 GM/DL (3.4-5.0) Calcium Level 7.5 MG/DL (8.5-10.1) Alkaline Phosphatase 32 U/L (45-117) Aspartate Amino Transf (AST/SGOT) 274 U/L (15-37) Alanine Aminotransferase (ALT/SGPT) 97 U/L (12-78) Potassium Level 3.2 MEQ/L (3.5-5.1) Total Creatine Kinase 9067 U/L (39-308) Creatine Kinase MB 9.0 NG/ML (0.5-3.6) Imaging Last Impressions Renal Ultrasound 09/28/17 0000 Signed Impressions: Service Date/Time: Thursday, September 28, 2017 13:32 - CONCLUSION: Normal examination. Keny Hyman MD Chest X-Ray 09/27/17 1542 Signed Impressions: Service Date/Time: Wednesday, September 27, 2017 15:52 - CONCLUSION: No acute disease. Justo Kelly MD Upper Extremity Ultrasound 09/27/17 0000 Signed Impressions: Service Date/Time: Wednesday, September 27, 2017 17:08 - CONCLUSION: Normal examination. Justo Kelly MD PE at Discharge GENERAL: This is a well-nourished, well-developed patient, in no apparent distress. CARDIOVASCULAR: Regular rate and regular rhythm without murmurs, gallops, or rubs. RESPIRATORY: Clear to auscultation. Breath sounds equal bilaterally. No wheezes , rales, or rhonchi. GASTROINTESTINAL: Abdomen soft, non-tender, nondistended. Normal, active bowel sounds MUSCULOSKELETAL: erythema/swelling of both upper extremities. NEURO: awake but confused. Hospital Course 1. Sepsis due to Cellulitis of the upper extremities/ upper back: seems to be improving. ID consult appreciated; changed to Ancef-blood cultures negative; will switch to po Keflex. 2. Rhabdomyolysis- improving; continue IVF for hydration- continue to monitor. 3. OLGA: improving. Aggressive IVF as above.nephrology evaluation appreciated. 4. Encephalopathy: improved. Urine Drug Screen +Marijuana. 5. elevated LFT's- possibly due to rhabdo- hepatitis panel negative. 6.hypokalemia; replaced. 7. DVT Prophylaxis: SCD/Teds. Pt Condition on Discharge: Fair Discharge Disposition: Discharge Home Discharge Time: <= 30 minutes Libby Rivera MD Sep 30, 2017 09:33
[2017-09-30 11:05] LABS: BICARBONATE 28.7 MEQ/L (21.0-32.0); CALCIUM 8.1 MG/DL (8.5-10.1); CREATININE 0.85 MG/DL (0.60-1.30)
[2017-09-30 12:00] VITALS: BP 159/81; PULSE 91; RESP 18; TEMP 97.9; O2SAT 98
== END 2017-09-30 14:30 | DRG 871 ==
LOC: NEPC 12:41 → NEDA 18:41 → NEDH 22:39 → N07B 09-28 01:16
PROVIDERS: ADMIT Internal Medicine; ATTEND Internal Medicine
PROC: 0J9G3ZZ Drainage of Right Lower Arm Subcutaneous Tissue and Fascia, Percutaneous Approach (ICD-10-PCS; principal; 2017-09-27)
DX: A41.9 Sepsis, unspecified organism (principal); G93.40 Encephalopathy, unspecified; R34 Anuria and oliguria; N17.9 Acute kidney failure, unspecified; M62.82 Rhabdomyolysis; L02.212 Cutaneous abscess of back [any part, except buttock and flank]; Z78.1 Physical restraint status; L03.113 Cellulitis of right upper limb; L03.114 Cellulitis of left upper limb; F12.90 Cannabis use, unspecified, uncomplicated; E87.6 Hypokalemia; R74.0 Nonspecific elevation of levels of transaminase and lactic acid dehydrogenase [LDH]
CPT/HCPCS: 10061; 71045; 76775; 80048; 80053; 80074; 80307; 81001; 82550; 82552; 83605; 85025; 87040; 93005; 93970; 96361; 96365; 96366; 96368; 96375; J0131; J0690; J0692; J1630; J2060; J2543; J3370; J7030; J7050; J7070; P9612